=== PATIENT | female | born 1940 | race Caucasian/White ===

== ENCOUNTER 2016-09-15 06:57 | Day surgery (SDC) | payer MEDICARE, BC ==
[2016-09-15] VITALS (18 sets, daily range): BP systolic 108–152; BP diastolic 69–97
[~2016-09-15] VITALS: Ht 162.6 cm; Wt 82.6 kg
[~2016-09-15 06:57] MED LIST: ASPI-241 PO; ATEN50TA PO; CLOP75TA PO; MULT-608 PO; PRAV10TA23 PO
[2016-09-15] MEDS ORDERED: LIDOCAINE 1% INJ 20 ML (XYLOCAINE) VIAL ONE (07:06)
[2016-09-15] MEDS ORDERED: NS IV 1000 ML 1,000 ML ONE (07:06)
[2016-09-15] MEDS ORDERED: HEParin (CATH LAB) 2,000 ML IV ONE (07:06)
[2016-09-15] MEDS ORDERED: NS IV 1000 ML 1,000 ML IV SCH ×2 (07:30→09:51)
[2016-09-15 07:31] LABS: MEAN PLATELET VOLUME 9.7 FL (7.4-10.4); RED BLOOD COUNT 4.44 10^6/uL (4.35-5.85); RED CELL DISTRIBUTION WIDTH 12.8 % (10.0-14.5); WHITE BLOOD COUNT 5.4 10^3/uL (4.3-11.0)
[2016-09-15] MEDS ORDERED: ASPI-983 PO (07:39)
[2016-09-15] MEDS ORDERED: AMLO5TAB4 PO (07:39)
[2016-09-15 07:51] LABS: ALANINE AMINOTRANSFERASE 17 U/L (0-55); ALBUMIN 4.4 G/DL (3.2-4.5); ANION GAP 9 MMOL/L (5-14); ASPARTATE AMINO TRANSFERASE 27 U/L (5-34); BILIRUBIN,TOTAL 0.4 MG/DL (0.1-1.0); BLOOD UREA NITROGEN 23 MG/DL (7-18); BUN/CREATININE RATIO 27; CALCIUM 9.2 MG/DL (8.5-10.1); CARBON DIOXIDE 26 MMOL/L (21-32); CHLORIDE 106 MMOL/L (98-107); CHOLESTEROL 162 MG/DL (< 200); CREATININE SERUM 0.86 MG/DL (0.60-1.30); DIRECT LDL 82 MG/DL (1-129); GFR ESTIMATED > 60; GLUCOSE 90 MG/DL (70-105); POTASSIUM 4.1 MMOL/L (3.6-5.0); SODIUM 141 MMOL/L (135-145); TOTAL PROTEIN 6.8 G/DL (6.4-8.2); TRIGLYCERIDES 58 MG/DL (<150); VLDL CHOLESTEROL 12 MG/DL (5-40)
[2016-09-15] MEDS ORDERED: fentaNYL INJECTION 100 MCG/2 ML AMP ONE (08:26)
[2016-09-15] MEDS ORDERED: MIDAZOLAM 5 MG/5 ML (VERSED) VIAL ONE (08:26)
[2016-09-15] MEDS ORDERED: diphenhydrAMINE 50 MG/ML INJ (BENADRYL) ONE (08:26)
--- NOTE | 2016-09-15 08:32 | Cardiac Procedure Note-CS/ASA ---
Pre-Procedure Note Pre-Op Procedure Note H&P Reviewed The H&P was reviewed, patient examined and no changes noted. Date H&P Reviewed: Sep 15, 2016 Time H&P Reviewed: 08:31 Conscious Sedation Pre-Proced Time Reviewed: :31 ASA Class: 3 Airway Mallampati Classification: ([place] appropriate class) I. II. III, IV Lungs Heart ASA score ASA 1: a normal healthy patient ASA 2: a patient with a mild systemic disease (mid diabetes, controlled hypertension, obesity ASA 3: a patient with a severe systemic disease that limits activity (angina , COPD, prior Myocardial infarction) ASA 4: a patient with an incapacitating disease that is a constant threat to life (CHF, renal failure) ASA 5: a moribund patient not expected to survive 24 hrs. (ruptured aneurysm) ASA 6: a declared brain patient whose organs are being harvested. For emergent operations, add the letter E after the classification Grade 2 Sedation Plan: Analgesia, Amnesia, Plan communicated to team members, Discussed options with patient/fam, Discussed risks with patient/fam Note The patient is an appropriate candidate to undergo the planned procedure, sedation, and anesthesia. The patient immediately re-assessed prior to indication. SOPHY MATTSON MD FACP FACC CCDS Sep 15, 2016 08:32
[2016-09-15] MEDS ORDERED: HEParin 1000 UNIT/ML (10ML VIAL) FOR BOLUS ONE (08:55)
[2016-09-15] MEDS ORDERED: EPTIFIBATIDE BOLUS 20 ML IV ONE (08:55)
[2016-09-15] MEDS ORDERED: NITROGLYCERIN DRIP 25 MG/D5W 0 ML IV ONE (08:56)
[2016-09-15] MEDS ORDERED: CLOPIDOGREL 300 MG (PLAVIX) TABLET PO ONE (09:29)
[2016-09-15] MEDS ORDERED: ASPIRIN 81 MG CHEW (CHILDREN'S ASA) ONE (09:30)
[2016-09-15] MEDS ORDERED: PATIENT MAY USE OWN MEDS, ALL PO SCH (10:00)
[2016-09-15] MEDS ORDERED: ACETAMINOPHEN 325 MG TABLET/CAPLET (TYLENOL) PO PRN (10:00)
--- NOTE | 2016-09-15 12:18 | CARDIAC CATHETERIZATION ---
PROCEDURE PHYSICIAN: SOPHY MATTSON CATHETERIZATION AND CORONARY INTERVENTION REPORT: DATE OF PROCEDURE: 09/15/2016 Konrad Mills is a 76-year-old lady who has known coronary artery disease with a history of coronary stenting in 2010. She has been experiencing chest discomfort. A myocardial perfusion imaging study indicated anterolateral ischemia. Cardiac catheterization was carried out after having obtained informed consent for cardiac catheterization and possible ad hoc coronary intervention. PROCEDURE: She was brought to the cardiac catheterization laboratory in a fasting state. The right groin was prepared and draped in usual sterile fashion. 1% lidocaine was used for local anesthesia. Modified Seldinger technique was used to advance a 5-Tajik sheath in the right femoral artery. 5-Tajik JL4 catheter was used for left coronary angiography. 5-Tajik JR4 catheter for right coronary angiography. A 5-Tajik pigtail catheter was used for left heart catheterization and left ventricular angiography. PERCUTANEOUS INTERVENTION TO THE LEFT ANTERIOR DESCENDING ARTERY: Following completion of the diagnostic procedure, we exchanged the sheath over the wire for a 6-Tajik sheath and used a 6-Tajik JL4 guide catheter to engage the left coronary artery. A double bolus of Integrilin was given. 5,000 units of intravenous heparin were given. BMW wire was used to cross the lesion in the proximal left anterior descending artery and the tip was placed in the distal vessel. We advanced Alpine Xience 2.75 x 23 mm stent which was carefully positioned to cover the long lesion in the proximal left anterior descending artery. The distal edge of the stent is proximal to the proximal edge of a previously placed stent in the mid left anterior descending artery. The stent was deployed at 20 atmospheres. Subsequently, further balloon angioplasty was carried out using the stent balloon up to 22 atmospheres. We also then used a NC Quantum 3.0 x 15 mm balloon. The noncompliant balloon was used to carry out balloon angioplasty across all of the newly stented area. Subsequent angiography revealed 0% residual stenosis at the previous site of up to 70% stenosis. The stents are not overlapping. The mid left anterior descending artery stent is known to be Promus 2.75 x 12 mm, which was placed in 10/2010. Flow throughout the vessel is normal. Angioplasty equipment was removed. Angiography of the right femoral artery was carried out through the sheath. Mynx was used to achieve hemostasis. She tolerated the procedure well. HEMODYNAMICS: Left ventricular end diastolic pressure following coronary angiography was 11 mmHg there is no significant pressure gradient on pullback sitting valve. Ascending aortic pressure was 139/60 with a mean of 95 mmHg. CORONARY ANGIOGRAPHY: The left main coronary artery is free of significant disease. Left anterior descending artery had long proximal lesion of up to approximately 70% to which successful stenting was carried out with Alpine Xience 2.75 x 23 mm stent that was postdilated with NC Quantum 3 mm balloon. A stent in the mid left anterior descending artery placed in October 2010 is patent and without significant disease. These 2 stents do not overlap. The left circumflex right arteries exhibit only mild plaques. LEFT VENTRICULAR ANGIOGRAPHY: Left ventricular angiography was carried out in the right anterior oblique projection. Global left ventricular systolic function is normal. Left ventricular ejection fraction is 65 to 70%. There is moderate mitral regurgitation, which appears to be catheter-induced. CONCLUSIONS: 1. Coronary artery disease, primarily consisting of a long, up to 70% stenosis within the mid left anterior descending artery to which successful stenting was carried out with Alpine Xience 2.75 x 23 mm stent that was postdilated with 3.0 mm noncompliant balloon. A mid right coronary artery stent known to be Promus 2.75 x 12 mm is a widely patent and free of significant disease. The stents are not overlapping. 2. Normal global left ventricular systolic function with an ejection fraction of 65 to 70%. 3. Normal left ventricular end diastolic pressure. 4. Mild mitral regurgitation that appears to be catheter-induced. She is being hospitalized after today's procedure. Plavix has been added to the regimen. Aspirin and the rest of the previous regimen is being continued. Job ID: [id number] Dictated Date: 09/15/2016 09:43:20 [employer] Date: 09/15/2016 11:55:42 / anjel
[2016-09-15] MEDS ORDERED: amLODIPine 5 MG (NORVASC) TAB PO SCH (21:00)
[2016-09-15] MEDS ORDERED: PRAVASTATIN 10 MG PO SCH (21:00)
[2016-09-16 00:22] VITALS: BP 121/90
[2016-09-16 04:24] LABS: RED BLOOD COUNT 4.29 10^6/uL (4.35-5.85); WHITE BLOOD COUNT 6.5 10^3/uL (4.3-11.0)
[2016-09-16 04:44] LABS: ANION GAP 10 MMOL/L (5-14); BLOOD UREA NITROGEN 16 MG/DL (7-18); BUN/CREATININE RATIO 21; CALCIUM 8.5 MG/DL (8.5-10.1); CARBON DIOXIDE 23 MMOL/L (21-32); CHLORIDE 106 MMOL/L (98-107); CREATININE SERUM 0.77 MG/DL (0.60-1.30); GFR ESTIMATED > 60; GLUCOSE 91 MG/DL (70-105); SODIUM 139 MMOL/L (135-145)
[2016-09-16 04:59] VITALS: BP 139/62
[2016-09-16 08:05] VITALS: BP 114/55
--- NOTE | 2016-09-16 08:57 | Progress Note-Cardiology ---
Cardiology SOAP Progress Note Subjective: Denies cp or palp or syncope or leg discomfort Objective: I&O/Vital Signs Vital Sign - Last 12Hours 09/16/16 09/16/16 09/16/16 09/16/16 00:22 01:00 04:59 07:00 Temp 97.4 97.0 Pulse 67 62 66 70 Resp 14 16 B/P 121/90 139/62 Pulse Ox 97 100 O2 Delivery Room Air 09/16/16 08:05 Temp 99.4 Pulse 74 Resp 14 B/P 114/55 Pulse Ox 97 O2 Delivery Room Air Intake and Output 09/16/16 00:00 Intake Total 2617 ml Output Total 350 ml Balance 2267 ml Weight (Pounds): 182 Weight (Ounces): 0.0 Weight (Calculated Kilograms): 82.331361 Groin site without hematoma: Yes Bruising: moderated bruising Constitutional: AAO x 3 well-developed well-nourished Respiratory: No accessory muscle use, lungs clear to percussion lungs clear to auscultation Cardiovascular: regular rate-rhythm S1 and S2 systolic murmur (faint ANTONIETTA at card base) Gastrointestional: No tender, softNo guarding, No rebound, audible bowel sounds Extremities: No pedal edema, No clubbing, No cyanosis Neurologic/Psychiatric: oriented x 3 grossly intact power is 5/5 both on sides Skin: No rash on exposed areas, No ulcerations on exposed areas Results/Procedures: Labs Laboratory Tests 09/16/16 04:00: Anion Gap 10, BUN/Creatinine Ratio 21, Blood Urea Nitrogen 16, Calcium Level 8.5 , Carbon Dioxide Level 23, Chloride Level 106, Creatinine 0.77, Estimat Glomerular Filtration Rate > 60, Glucose Level 91, Hematocrit 38, Hemoglobin 12.8, Mean Corpuscular Hemoglobin 30, Mean Corpuscular Hemoglobin Concent 33, Mean Corpuscular Volume 89, Mean Platelet Volume 10.0, Platelet Count 217, Potassium Level 4.0, Red Blood Count 4.29L, Red Cell Distribution Width 13.0, Sodium Level 139, White Blood Count 6.5 Laboratory Tests 09/15/16 07:20 09/16/16 04:00 A/P: Assessment: MPI of 07/21/16: small amount of basal anterolat ischemia, LVEF 74%, normal RWMA. This led to cath described below Coronary artery disease with a history of drug eluting stenting of the mid left anterior descending artery with Promus 2.75 x 12 mm stent in October 2010. Last card cath of 09/15/15 that showed the previous stent to be patent and patient underwent Alpine Xience 2.7 x 23 mm stenting for 70% prox LAD stenosis (post- dilated with 3 mm noncompliant balloon). Stents are nonoverlapping. LVEF was 65- 70%; LVEDP was normal Echo of 07/06/16: LVEF 60%, triv to mild MR and TR, mild diastolic dysfunction of the LV, no valvular stensosis, PASP WNL CXR on 07/01/16: No acute process Hypertension Chronic intermittent bilateral lower leg edema, likely related to venous insufficiency, currently controlled Minimal carotid arterial disease on ultrasonography of May 2016 Gastroesophageal reflux Intolerance to lovastatin but she has been able to tolerate low dose pravastatin. Lipid profile is currently well controlled History of left hip sciatica which is currently well controlled History of bilat knee replacement Plan: * I spoke with her in detail regarding cath findings and procedures performed * I reviewed risk factor modification and importance of med compliance, including newly added clopidogrel * I answered questions * Outpatient f/u is advised SOPHY MATTSON MD FACP FAC CCDS Sep 16, 2016 08:57
[2016-09-16] MEDS ORDERED: ATENOLOL 50 MG (TENORMIN) TAB PO SCH (09:00)
[2016-09-16] MEDS ORDERED: ASPIRIN E.C. 81 MG (ECOTRIN) TAB PO SCH (09:00)
[2016-09-16] MEDS ORDERED: CLOPIDOGREL 75 MG (PLAVIX) TABLET PO SCH (09:00)
--- NOTE | 2016-09-16 09:02 | Cardiology Discharge Summary ---
Diagnosis/Chief Complaint Date of Admission Date of Discharge Final/Discharge Diagnosis MPI of 07/21/16: small amount of basal anterolat ischemia, LVEF 74%, normal RWMA. This led to cath described below Coronary artery disease with a history of drug eluting stenting of the mid left anterior descending artery with Promus 2.75 x 12 mm stent in October 2010. Last card cath of 09/15/15 that showed the previous stent to be patent and patient underwent Alpine Xience 2.7 x 23 mm stenting for 70% prox LAD stenosis (post- dilated with 3 mm noncompliant balloon). Stents are nonoverlapping. LVEF was 65- 70%; LVEDP was normal Echo of 07/06/16: LVEF 60%, triv to mild MR and TR, mild diastolic dysfunction of the LV, no valvular stensosis, PASP WNL CXR on 07/01/16: No acute process Hypertension Chronic intermittent bilateral lower leg edema, likely related to venous insufficiency, currently controlled Minimal carotid arterial disease on ultrasonography of May 2016 Gastroesophageal reflux Intolerance to lovastatin but she has been able to tolerate low dose pravastatin. Lipid profile is currently well controlled History of left hip sciatica which is currently well controlled History of bilat knee replacement Discharge Summary Procedures Card cath and LAD PCI on 09/15/16 Hospital Course Pending Labs Laboratory Tests 09/16/16 04:00: Anion Gap 10, BUN/Creatinine Ratio 21, Blood Urea Nitrogen 16, Calcium Level 8.5 , Carbon Dioxide Level 23, Chloride Level 106, Creatinine 0.77, Estimat Glomerular Filtration Rate > 60, Glucose Level 91, Hematocrit 38, Hemoglobin 12.8, Mean Corpuscular Hemoglobin 30, Mean Corpuscular Hemoglobin Concent 33, Mean Corpuscular Volume 89, Mean Platelet Volume 10.0, Platelet Count 217, Potassium Level 4.0, Red Blood Count 4.29, Red Cell Distribution Width 13.0, Sodium Level 139, White Blood Count 6.5 Discussion & Recommendations Dicharge Diet: Cardiac Diet Home Medications Reviewed patient Home Medication Reconciliation Form Discharge Home Medications: Reviewed and agree with Discharge Medication list on patient's Discharge Instruction sheet SOPHY MATTSON MD FACP [facility] CCDS Sep 16, 2016 09:02
[2016-09-16] MEDS ORDERED: CLOP75TA28 PO (09:04)
[2016-09-16] MEDS ORDERED: ASPI-999 PO (09:04)
--- NOTE | 2016-09-16 09:05 | Discharge Inst-Cardiology ---
Discharge Inst-Cardiac Discharge Medications New Medications: Aspirin (Aspirin) 81 Mg Tab.chew 81 MG PO DAILY #90 Ref 3 TAB Clopidogrel Bisulfate (Clopidogrel) 75 Mg Tablet 75 MG PO DAILY #90 Ref 3 TAB Continued Medications: Amlodipine Besylate (Norvasc) 5 Mg Tablet 5 MG PO HS TAB Atenolol (Tenormin 50 Mg) 50 Mg Tablet 50 EACH PO DAILY Pravastatin Sodium (Pravachol) 10 Mg Tablet 10 MG PO HS Discontinued Medications: Aspirin (Aspirin EC) 81 Mg Tablet.dr 81 MG PO HS TAB SOPHY MATTSON MD FACP FACC CCDS Sep 16, 2016 09:05
--- NOTE | 2016-09-16 09:05 | Discharge Inst-Post CATH ---
Discharge Inst-CATH Post Cardiac Cath D/C Inst Follow Up/Plan F/u with Dr Stewart in 2 weeks CARDIAC CATH DISCHARGE INSTRUCTIONS *Hold Metformin for 48 hours post heart cath. ACTIVITY * Go Home directly and rest. * Limit activity of the leg (or wrist if it was used) for 7 days including aerobics, swimming, jogging, bicycling, etc. * Restrict stair-climbing for 7 days if possible, if not, climb up with your non -cath leg, then bring together on the same step. * Avoid lifting, pushing, pulling or excessive movement of the affected extremity for 7 days. * Customary sexual activity may be resumed after 2 days-use caution not to use a position that strains or causes pain to the affected extremity. * No driving for 24 hours. * NO SMOKING. * Avoid straining for bowel movements for 7 days. * Gentle walking on level ground is allowed. * Returning to work will depend on the type of procedure and the results. Your doctor will discuss this with you. CALL YOUR DOCTOR FOR ANY OF THE FOLLOWING: *If bleeding from the puncture site occurs- Apply gentle pressure to site with clean cloth and call your doctor or EMS. * If a knot or lump forms under the skin, increases in size, or causes pain. * If bruising appears to be worsening or moving further down your leg instead of disappearing. * Temperature above 101 F. CARE OF YOUR GROIN INCISION; * Bruising or purple discoloration of the skin near the puncture site is common. * You may shower only, no bathtub bathing for 5 days. Be careful to avoid slipping as your leg may feel stiff. * If a closure device was used on your femoral artery, please see the attached guide regarding care of the device and your leg. * REMOVE the dressing from your groin the next day after your procedure in the shower. CARE OF YOUR WRIST INCISION; * Bruising or purple discoloration of the skin near the puncture site is common. * You may shower. * DO NOT submerge wrist. * Remove dressing in 24 hours. SOPHY STEWART MD [facility] CCDS Sep 16, 2016 09:05
[2016-09-16 09:45] VITALS: BP 114/55
== END 2016-09-16 09:45 | disposition home or self-care (01) ==
LOC: CATH 06:57 → ICU 11:10 → CATH 09-16 09:45
PROVIDERS: ATTEND Internal Medicine Cardiovascular Disease
DX: I25.10 Atherosclerotic heart disease of native coronary artery without angina pectoris (principal); I10 Essential (primary) hypertension; R60.9 Edema, unspecified; K21.9 Gastro-esophageal reflux disease without esophagitis; Z79.899 Other long term (current) drug therapy; Z95.5 Presence of coronary angioplasty implant and graft
CPT/HCPCS: 36415; 80048; 80053; 80061; 85027; 85610; 85730; 87081; 93005; 93458

== ENCOUNTER → 2016-10-06 | Outpatient (CLI) | payer MEDICARE, BC ==
[~2016-10-06] MED LIST changes: +AMLO5TAB4 PO; +ASPI-983 PO; +ASPI-999 PO; +CLOP75TA28 PO
--- OUTSIDE RECORDS SUMMARY | 2016-10-06 13:32 | XMS REPORT | Continuity of Care Document ---
Author Author [facility] Organization [facility] Address Unknown Phone Unavailable Care Team Providers Care Television Actor Name Role Phone JOHN PITTMAN DO PCP Insurance Providers Payer Name Policy Number Subscriber Name Relationship [employer] [id number] Coco Emerson L 18 Self / [id number] Coco Emerson 18 Self / Same As Patient Advance Directives Directive Response Recorded Date/Time Advance Directives No 09/15/16 7:19am Health Care Power of Supreme Court Judge No 09/15/16 7:19am Organ Donor No 09/15/16 7:19am Resuscitation Status Full Code 09/15/16 7:19am Problems No problem information available. Medications Current Home Medications Medication Dose Units Route Directions Days/Qty Instructions Start Date Atenolol 50 Mg 50 Each Oral Daily 10/16/10 Pravastatin Sodium 10 Mg 10 Mg Oral Bedtime 10/16/10 Amlodipine Besylate 5 Mg 5 Mg Oral Bedtime 09/15/16 Clopidogrel Bisulfate 75 Mg 75 Mg Oral Daily 90 09/16/16 Aspirin 81 Mg 81 Mg Oral Daily 90 09/16/16 Past Home Medications Medication Directions Ordered Status Aspirin 325 Mg Tablet.dr 325 Mg Oral Bedtime 10/16/10 Discontinued Clopidogrel Bisulfate 75 Mg Tablet, 1 Each Oral Bedtime 10/16/10 Discontinued Multivitamins 1 Tab Tablet, 1 Tab Oral Bedtime 10/16/10 Discontinued Aspirin 81 Mg Tablet., 81 Mg Oral Bedtime 09/15/16 Discontinued Social History Social History Problem Response Recorded Date/Time Recent Foreign Travel No 09/15/2016 7:25am Recent Infectious Disease Exposure No 09/15/2016 7:25am Smoking Status Never a Smoker 09/15/2016 7:20am Query Response Start Date Stop Date Smoking Status Never a Smoker Hospital Discharge Instructions Patient Instructions Physician Instructions Follow Up/Plan F/u with Dr Stewart in 2 weeks CARDIAC CATH DISCHARGE INSTRUCTIONS *Hold Metformin for 48 hours post heart cath. ACTIVITY * Go Home directly and rest. * Limit activity of the leg (or wrist if it was used) for 7 days including aerobics, swimming, jogging, bicycling, etc. * Restrict stair-climbing for 7 days if possible, if not, climb up with your non-cath leg, then bring together on the same step. * Avoid lifting, pushing, pulling or excessive movement of the affected extremity for 7 days. * Customary sexual activity may be resumed after 2 days-use caution not to use a position that strains or causes pain to the affected extremity. * No driving for 24 hours. * NO SMOKING. * Avoid straining for bowel movements for 7 days. * Gentle walking on level ground is allowed. * Returning to work will depend on the type of procedure and the results. Your doctor will discuss this with you. CALL YOUR DOCTOR FOR ANY OF THE FOLLOWING: *If bleeding from the puncture site occurs- Apply gentle pressure to site with clean cloth and call your doctor or EMS. * If a knot or lump forms under the skin, increases in size, or causes pain. * If bruising appears to be worsening or moving further down your leg instead of disappearing. * Temperature above 101 F. CARE OF YOUR GROIN INCISION; * Bruising or purple discoloration of the skin near the puncture site is common. * You may shower only, no bathtub bathing for 5 days. Be careful to avoid slipping as your leg may feel stiff. * If a closure device was used on your femoral artery, please see the attached guide regarding care of the device and your leg. * REMOVE the dressing from your groin the next day after your procedure in the shower. CARE OF YOUR WRIST INCISION; * Bruising or purple discoloration of the skin near the puncture site is common. * You may shower. * DO NOT submerge wrist. * Remove dressing in 24 hours. Plan of Care Discharge Date 09/16/16 9:45am Instructions/Education Provided CARDIAC CATH DISCHARGE INSTRUC Prescriptions See Medication Section Functional Status Query Response Date Recorded Patient Orientation Person Place Time Situation September 16, 2016 10:16am Comprehension Ability Understands Concepts September 16, 2016 8:00am Allergies, Adverse Reactions, Alerts Allergen Type Severity Reaction Status Last Updated hydrocodone ([id number]) Allergy Unknown Active 07/26/08 Penicillin g Allergy Unknown Active 07/26/08 Immunizations No immunization records. Vital Signs Acute Vital Signs Vital Response Date/Time Temperature (Fahrenheit) 99.4 degrees F (97.6 - 99.5) 09/16/2016 9:45am Temperature (Calculated Celsius) 37.47141 degrees C (36.4 - 37.5) 09/16/2016 8:05am Temperature Source Tympanic 09/16/2016 9:45am Pulse Rate (adult) 74 bpm (60 - 90) 09/16/2016 9:45am Respiratory Rate 14 bpm (12 - 24) 09/16/2016 9:45am O2 Sat by Pulse Oximetry 97 % (88 - 100) 09/16/2016 9:45am Blood Pressure 114/55 mm Hg 09/16/2016 9:45am Blood Pressure Mean 74 mm Hg 09/16/2016 8:05am Pain Numeric Pain Scale 0-No Pain 09/16/2016 9:45am Height (Feet) 5 feet 09/15/2016 7:25am Height (Inches) 4.00 inches 09/15/2016 7:25am Height (Calculated Centimeters) 162.475296 cm 09/15/2016 7:25am Weight (Pounds) 182 pounds 09/15/2016 7:25am Weight (Ounces) 0.0 oz 09/15/2016 7:25am Weight (Calculated Grams) 18939.81 gm 09/15/2016 7:25am Weight (Calculated Kilograms) 82.098110 kilograms 09/15/2016 7:25am Calculated BMI 31.2 09/15/2016 7:25am Capillary Refill Capillary Refill Less Than 3 Seconds 09/15/2016 2:00pm Results Laboratory Results Test Name Result Units Flags Reference Collection Date/Time Result Date/ Time Comments White Blood Count 6.5 10^3/uL 4.3-11.0 09/16/2016 4:00am 09/16/2016 4: 26am Red Blood Count 4.29 10^6/uL L 4.35-5.85 09/16/2016 4:00am 09/16/2016 4: 26am Hemoglobin 12.8 G/DL 11.5-16.0 09/16/2016 4:00am 09/16/2016 4:26am Hematocrit 38 % 35-52 09/16/2016 4:00am 09/16/2016 4:26am Mean Corpuscular Volume 89 FL 80-99 09/16/2016 4:00am 09/16/2016 4: 26am Mean Corpuscular Hemoglobin 30 PG 25-34 09/16/2016 4:00am 09/16/2016 4: 26am Mean Corpuscular Hemoglobin Concent 33 G/DL 32-36 09/16/2016 4:00am 08/2016 4:26am Red Cell Distribution Width 13.0 % 10.0-14.5 09/16/2016 4:00am 2016 4:26am Platelet Count 217 10^3/uL 130-400 09/16/2016 4:00am 09/16/2016 4:26am Mean Platelet Volume 10.0 FL 7.4-10.4 09/16/2016 4:00am 09/16/2016 4: 26am Prothrombin Time 13.0 SEC 12.2-14.7 09/15/2016 7:20am 09/15/2016 7: 46am INR Comment 1.0 0.8-1.4 09/15/2016 7:20am 09/15/2016 7:46am INTERPRETIVE DATA SUGGESTED THERAPEUTIC RANGE FOR INR'S: VENOUS THROMBOSIS, PULMONARY EMBOLISM, OR PREVENTION OF SYSTEMIC EMBOLISM (EG. IN ATRIAL FIBRILLATION): 2.0 - 3.0 MECHANICAL PROSTHETIC HEART VALVES: 2.5 - 3.5* *NOTE: INR'S UP TO 4.5 MAY BE NECESSARY IN SELECTED GROUPS OF HIGH RISK PATIENTS. [employer] CONSENSUS CONFERENCE ON ANTITHROMBOTIC THERAPY (2000). Activated Partial Thromboplast Time 29 SEC 24-35 09/15/2016 7:20 7:46am Sodium Level 139 MMOL/L 135-145 09/16/2016 4:00am 09/16/2016 4:52am Potassium Level 4.0 MMOL/L 3.6-5.0 09/16/2016 4:00am 09/16/2016 4:52am Chloride Level 106 MMOL/L 98-107 09/16/2016 4:00am 09/16/2016 4:52am Carbon Dioxide Level 23 MMOL/L 21-32 09/16/2016 4:00am 09/16/2016 4: 52am Anion Gap 10 MMOL/L 5-14 09/16/2016 4:00am 09/16/2016 4:52am Blood Urea Nitrogen 16 MG/DL 7-18 09/16/2016 4:00am 09/16/2016 4:52am Creatinine 0.77 MG/DL 0.60-1.30 09/16/2016 4:00am 09/16/2016 4:52am BUN/Creatinine Ratio 21 09/16/2016 4:00am 09/16/2016 4:52am Estimat Glomerular Filtration Rate > 60 09/16/2016 4:00am 2016 4:52am GFR INTERPRETIVE DATA UNITS FOR ESTIMATED GFR (eGFR): mL/min/1.73 M2 REFERENCE RANGE FOR ESTIMATED GFR (eGFR) eGFR NORMAL eGFR >60 MODERATELY DECREASED eGFR 30-59 SEVERLY DECREASED eGFR 15-29 KIDNEY FAILURE <15 (OR DIALYSIS) Glucose Level 91 MG/DL 70-105 09/16/2016 4:00am 09/16/2016 4:52am Calcium Level 8.5 MG/DL 8.5-10.1 09/16/2016 4:00am 09/16/2016 4:52am Total Bilirubin 0.4 MG/DL 0.1-1.0 09/15/2016 7:20am 09/15/2016 7:52am Alkaline Phosphatase 63 U/L 40-136 09/15/2016 7:20am 09/15/2016 7:52am Aspartate Amino Transf (AST/SGOT) 27 U/L 5-34 09/15/2016 7:20am 2016 7:52am Alanine Aminotransferase (ALT/SGPT) 17 U/L 0-55 09/15/2016 7:20am 09/15 7:52am Total Protein 6.8 G/DL 6.4-8.2 09/15/2016 7:20am 09/15/2016 7:52am Albumin 4.4 G/DL 3.2-4.5 09/15/2016 7:20am 09/15/2016 7:52am Triglycerides Level 58 MG/DL <150 09/15/2016 7:20am 09/15/2016 7:52am Cholesterol Level 162 MG/DL < 200 09/15/2016 7:20am 09/15/2016 7:52am HDL Cholesterol 70 MG/DL H 40-60 09/15/2016 7:20am 09/15/2016 7:52am LDL Cholesterol Direct 82 MG/DL 1-129 09/15/2016 7:20am 09/15/2016 7: 52am VLDL Cholesterol 12 MG/DL 5-40 09/15/2016 7:20am 09/15/2016 7:52am Procedures Procedure Status Date Provider(s) Tracing only of electrocardiogram Completed 09/15/16 [facility] Tracing only of electrocardiogram Completed 09/16/16 SOPHY STEWART MD, FACP FACC CCDS Encounters Encounter Location Arrival/Admit Date Discharge/Depart Date Attending Provider Departed [facility] 09/15/16 6:57am 9:45am SOPHY STEWART FACP, MD [facility]
--- NOTE | 2016-10-06 15:44 | Diagnostic Imaging Report ---
Indication: Three-week status post right groin catheterization Grayscale imaging was performed. Color Doppler velocity and spectral waveform analysis of the right groin vessels was performed. Examination shows patent common femoral artery and veins. There is no pseudoaneurysm. There is no AV fistula. There is no hematoma. Impression: No abnormality is seen. Dictated by: Dictated on workstation # [id number]
== END ==
LOC: RAD 11:12
PROVIDERS: ATTEND Internal Medicine Cardiovascular Disease
DX: I25.10 Atherosclerotic heart disease of native coronary artery without angina pectoris (principal); R10.31 Right lower quadrant pain; I65.23 Occlusion and stenosis of bilateral carotid arteries; E78.4 Other hyperlipidemia; I10 Essential (primary) hypertension
CPT/HCPCS: 93926

== ENCOUNTER → 2016-12-04 | Outpatient (CLI) | payer MEDICARE, BC ==
--- NOTE | 2016-12-07 09:15 | Diagnostic Imaging Report ---
Bilateral screening mammogram The current study was also evaluated with a Computer Aided Detection (CAD) system. Indication: Screening. No current complaints stated on the questionnaire. COMPARISON: 12/03/15. FINDINGS: The breasts are composed of scattered fibroglandular densities. There are scattered benign-appearing calcifications. Allowing for technique and positional differences, no suspicious change is seen. IMPRESSION: No significant change. ACR BI-RADS Category 2: Benign findings. Result letter will be mailed to the patient. Note: At least 10% of breast cancer is not imaged by mammography. Dictated by: Dictated on workstation # [id number]
== END ==
LOC: RAD 12:31
PROVIDERS: ATTEND Family Medicine
DX: Z12.31 Encounter for screening mammogram for malignant neoplasm of breast (principal)
CPT/HCPCS: 77067

== ENCOUNTER → 2018-12-12 | Outpatient (CLI) | payer MEDICARE, BC ==
--- NOTE | 2018-12-12 12:17 | Diagnostic Imaging Report ---
INDICATION: Screening The current study was also evaluated with a Computer Aided Detection (CAD) system. 3-D Tomographic imaging was also performed. FINDINGS: Comparison made with prior examination from 12/06/2017, 12/04/2016 and 12/03/2015. There are scattered fibroglandular densities bilaterally. There are a few benign type calcifications. There is no dominant mass, spiculated lesion or suspicious calcification identified. Skin, nipples and axilla are unremarkable. IMPRESSION: Category 2 benign ACR BI-RADS Category 2: Benign findings. Result letter will be mailed to the patient. Note: At least 10% of breast cancer is not imaged by mammography. Dictated by: Dictated on workstation # [id number]
== END ==
LOC: RAD 10:41
PROVIDERS: ATTEND Family Medicine
DX: Z12.31 Encounter for screening mammogram for malignant neoplasm of breast (principal)
CPT/HCPCS: 77067

== ENCOUNTER 2019-02-07 22:18 | Observation (INO) | payer MEDICARE, BC ==
[~2019-02-07] VITALS: Ht 162.6 cm; Wt 73.2 kg
--- OUTSIDE RECORDS SUMMARY | 2019-02-07 22:24 | XMS REPORT | Continuity of Care Document ---
Author Organization Unknown Address Unknown Allergies Active Description Code Type Severity Reaction Onset Reported/Identified Relationship to Patient Clinical Status Yes hydrocodone [id number] Drug Allergy Unknown N/A 07/26/2008 Yes penicillin G [id number] Drug Allergy Unknown N/A 07/26/2008 Medications There is no data. Problems Date Dx Coded Attending Type Code Diagnosis Diagnosed By 06/27/2014 KARMEN GRAY MD Ot 241.0 08/13/2014 KARMEN GRAY MD Ot 241.0 11/22/2014 SRINIVASAN RENTERIA FACC, ALI FACP CCDS Ot 272.4 11/22/2014 SRINIVASAN SOARESC, ALI FACP CCDS Ot 401.9 11/22/2014 SRINIVASAN SOARESC, ALI FACP CCDS Ot 414.9 11/22/2014 SRINIVASAN RENTERIA FACC, ALI FACP CCDS Ot 447.9 11/22/2014 SRINIVASAN RENTERIA FACC, ALI FACP CCDS Ot 530.81 11/22/2014 SRINIVASAN SOARESC, ALI FACP CCDS Ot V12.49 11/22/2014 SRINIVASAN RENTERIA FACC, ALI FACP CCDS Ot V43.65 12/03/2014 SRINIVASAN RENTERIA FACC, ALI FACP CCDS Ot 272.4 12/03/2014 SRINIVASAN RENTERIA FACC, ALI FACP CCDS Ot 401.9 12/03/2014 SRINIVASAN RENTERIA FACC, ALI FACP CCDS Ot 414.9 12/03/2014 SRINIVASAN RENTERIA FACC, ALI FACP CCDS Ot 447.9 12/03/2014 SRINIVASAN SOARESC, ALI FACP CCDS Ot 530.81 12/03/2014 SRINIVASAN SOARESC, ALI FACP CCDS Ot V12.49 12/03/2014 SRINIVASAN OSARESC, ALI FACP CCDS Ot V43.65 12/03/2014 JOHN GUILLORY DO Ot V76.12 12/03/2014 JOHN GUILLORY DO Ot V76.12 12/03/2014 RAVINDERBERNAVIRGIL LINDSEY CARLOSJOHN S Ot V76.12 12/18/2014 SRINIVASAN RENTERIA FAC, ALI FACP CCDS Ot 272.4 12/18/2014 SRINIVASAN MD [facility], ALI FACP CCDS Ot 401.9 12/18/2014 SRINIVASAN MD [facility], ALI FACP CCDS Ot 414.9 12/18/2014 SRINIVASAN MD FAC, ALI FACP CCDS Ot 447.9 12/18/2014 SRINIVASAN MD [facility], ALI FACP CCDS Ot 530.81 12/18/2014 SRINIVASAN MD [facility], ALI FACP CCDS Ot V12.49 12/18/2014 SRINIVASAN MD [facility], ALI FACP CCDS Ot V43.65 01/04/2015 SRINIVASAN MD [facility], ALI FACP CCDS Ot 272.4 01/04/2015 SRINIVASAN MD [facility], ALI FACP CCDS Ot 401.9 01/04/2015 SRINIVASAN MD [facility], ALI FACP CCDS Ot 414.9 01/04/2015 SRINIVASAN MD [facility], ALI FACP CCDS Ot 447.9 01/04/2015 SRINIVASAN MD [facility], ALI FACP CCDS Ot 530.81 01/04/2015 SRINIVASAN MD [facility], ALI FACP CCDS Ot V12.49 01/04/2015 SRINIVASAN MD [facility], ALI FACP CCDS Ot V43.65 01/12/2015 TOYA JOHN S Ot V76.12 12/04/2015 TOYA JOHN S Ot Z12.31 ENCNTR SCREEN MAMMOGRAM FOR MALIGNANT NE 12/05/2015 JOHN GUILLORY DO S Ot Z12.31 ENCNTR SCREEN MAMMOGRAM FOR MALIGNANT NE 12/24/2015 TOYA JOHN S Ot Z12.31 ENCNTR SCREEN MAMMOGRAM FOR MALIGNANT NE 07/01/2016 Ot 611.72 LUMP OR MASS IN BREAST 07/01/2016 Ot 611.72 LUMP OR MASS IN BREAST 07/01/2016 Ot 922.0 CONTUSION OF BREAST 07/01/2016 Ot E000.8 OTHER EXTERNAL CAUSE STATUS 07/01/2016 Ot E888.9 FALL NOS 07/01/2016 Ot V76.12 OTH SCREEN MAMMO- MALIGN NEOPLASM OF [place] 07/01/2016 KARMEN GRAY MD Ot V76.12 OTH SCREEN MAMMO-MALIGN NEOPLASM OF [place] 07/01/2016 SHAHBAZ VERAS APRN Ot V76.12 OTH SCREEN MAMMO-MALIGN NEOPLASM OF [place] 07/01/2016 KARMEN GRAY MD Ot 241.0 NONTOX UNINODULAR GOITER 07/01/2016 KARMEN GRAY MD Ot 241.0 NONTOX UNINODULAR GOITER 07/01/2016 SRINIVASAN RENTERIA FACC, ALI FACP CCDS Ot 272.4 HYPERLIPIDEMIA NEC/NOS 07/01/2016 SRINIVASAN RENTERIA FACC, ALI FACP CCDS Ot 401.9 HYPERTENSION NOS 07/01/2016 SRINIVASAN RENTERIA FACC, ALI FACP CCDS Ot 414.9 CHR ISCHEMIC HRT DIS NOS 07/01/2016 SRINIVASAN RENTERIA FACC, ALI FACP CCDS Ot 447.9 ARTERIAL DISEASE NOS 07/01/2016 SRINIVASAN RENTERIA FACC, ALI FACP CCDS Ot 530.81 ESOPHAGEAL REFLUX 07/01/2016 SRINIVASAN RENTERIA FACC, ALI FACP CCDS Ot V12.49 HX OTH DISORD/NERV SYS SENSE ORGANS 07/01/2016 SRINIVASAN RENTERIA FACC, ALI FACP CCDS Ot V43.65 KNEE JOINT REPLACEMENT STATUS 07/01/2016 JOHN GUILLORY DO Ot V76.12 OTH SCREEN MAMMO-MALIGN NEOPLASM OF [place] 07/01/2016 JOHN GUILLORY DO Ot Z12.31 ENCNTR SCREEN MAMMOGRAM FOR MALIGNANT NE 07/02/2016 SRINIVASAN RENTERIA FACC, ALI FACP CCDS Ot R07.89 OTHER CHEST PAIN 07/06/2016 Ot 611.72 LUMP OR MASS IN BREAST 07/06/2016 Ot 611.72 LUMP OR MASS IN BREAST 07/06/2016 Ot 922.0 CONTUSION OF BREAST 07/06/2016 Ot E000.8 OTHER EXTERNAL CAUSE STATUS 07/06/2016 Ot E888.9 FALL NOS 07/06/2016 Ot V76.12 OTH SCREEN MAMMO- MALIGN NEOPLASM OF [place] 07/06/2016 KARMEN GRAY MD Ot V76.12 OTH SCREEN MAMMO-MALIGN NEOPLASM OF [place] 07/06/2016 SHAHBAZ VERAS APRN Ot V76.12 OTH SCREEN MAMMO-MALIGN NEOPLASM OF [place] 07/06/2016 KARMEN GRAY MD Ot 241.0 NONTOX UNINODULAR GOITER 07/06/2016 KARMEN GRAY MD Ot 241.0 NONTOX UNINODULAR GOITER 07/06/2016 SRINIVASAN RENTERIA FACC, SOPHY FACP CCDS Ot 272.4 HYPERLIPIDEMIA NEC/NOS 07/06/2016 SRINIVASAN RENTERIA FACC, SOPHY FACP CCDS Ot 401.9 HYPERTENSION NOS 07/06/2016 SRINIVASAN RENTERIA FACC, SOPHY FACP CCDS Ot 414.9 CHR ISCHEMIC HRT DIS NOS 07/06/2016 SRINIVASAN RENTERIA FACC, ALI FACP CCDS Ot 447.9 ARTERIAL DISEASE NOS 07/06/2016 SRINIVASAN RENTERIA FACC, SOPHY FACP CCDS Ot 530.81 ESOPHAGEAL REFLUX 07/06/2016 SRINIVASAN RENTERIA FACC, SOPHY FACP CCDS Ot V12.49 HX OTH DISORD/NERV SYS SENSE ORGANS 07/06/2016 SRINIVASAN RENTERIA FACC, SOPHY FACP CCDS Ot V43.65 KNEE JOINT REPLACEMENT STATUS 07/06/2016 JOHN GUILLORY DO S Ot V76.12 OTH SCREEN MAMMO-MALIGN NEOPLASM OF [place] 07/06/2016 JOHN GUILLORY DO S Ot Z12.31 ENCNTR SCREEN MAMMOGRAM FOR MALIGNANT NE 07/06/2016 SRINIVASAN RENTERIA FACC, SOPHY FACP CCDS Ot R07.89 OTHER CHEST PAIN 07/07/2016 SRINIVASAN RENTERIA FACC, ALI FACP CCDS Ot I10 ESSENTIAL (PRIMARY) HYPERTENSION 07/07/2016 SRINIVASAN RENTERIA FACC, ALI FACP CCDS Ot I25.10 ATHSCL HEART DISEASE OF [place] CORONARY 07/07/2016 SRINIVASAN RENTERIA FACC, SOPHY FACP CCDS Ot I65.23 OCCLUSION AND STENOSIS OF [place] 07/07/2016 SRINIVASAN RENTERIA FACC, SOPHY FACP CCDS Ot R07.89 OTHER CHEST PAIN 07/07/2016 SRINIVASAN RENTERIA FACC, SOPHY FACP CCDS Ot Z96.653 PRESENCE OF ARTIFICIAL KNEE JOINT, BILAT 07/07/2016 SRINIVASAN RENTERIA FACC, ALI FACP CCDS Ot I10 ESSENTIAL (PRIMARY) HYPERTENSION 07/07/2016 SOPHY MATTSON MD, FACC FACP CCDS Ot I25.10 ATHSCL HEART DISEASE OF [place] CORONARY 07/07/2016 SRINIVASAN RENTERIA FACC, SOPHY FACP CCDS Ot I65.23 OCCLUSION AND STENOSIS OF [place] 07/07/2016 SRINIVASAN RENTERIA FACC, ALI FACP CCDS Ot R07.89 OTHER CHEST PAIN 07/07/2016 SRINIVASAN RENTERIA FACC, ALI FACP CCDS Ot Z96.653 PRESENCE OF ARTIFICIAL KNEE JOINT, BILAT 07/21/2016 SRINIVASAN RENTERIA FACC, ALI FACP CCDS Ot R07.89 OTHER CHEST PAIN 07/21/2016 SRINIVASAN RENTERIA FACC, ALI FACP CCDS Ot R07.89 OTHER CHEST PAIN 07/22/2016 SRINIVASAN RENTERIA FACC, ALI FACP CCDS Ot R07.89 OTHER CHEST PAIN 07/22/2016 SRINIVASAN RENTERIA FACC, ALI FACP CCDS Ot I10 ESSENTIAL (PRIMARY) HYPERTENSION 07/22/2016 SRINIVASAN RENTERIA FACC, ALI FACP CCDS Ot I25.10 ATHSCL HEART DISEASE OF [place] CORONARY 07/22/2016 SRINIVASAN RENTERIA FACC, ALI FACP CCDS Ot I65.23 OCCLUSION AND STENOSIS OF [place] 07/22/2016 SRINIVASAN SOARESC, ALI FACP CCDS Ot R07.89 OTHER CHEST PAIN 07/22/2016 SRINIVASAN SOARESC, ALI FACP CCDS Ot Z96.653 PRESENCE OF ARTIFICIAL KNEE JOINT, BILAT 07/29/2016 SRINIVASAN SOARESC, ALI FACP CCDS Ot I10 ESSENTIAL (PRIMARY) HYPERTENSION 07/29/2016 SRINIVASAN RENTERIA FACC, ALI FACP CCDS Ot I25.10 ATHSCL HEART DISEASE OF [place] CORONARY 07/29/2016 SRINIVASAN RENTERIA FACC, ALI FACP CCDS Ot I65.23 OCCLUSION AND STENOSIS OF [place] 07/29/2016 SRINIVASAN SOARESC, ALI FACP CCDS Ot R07.89 OTHER CHEST PAIN 07/29/2016 SRINIVASAN SOARESC, ALI FACP CCDS Ot Z96.653 PRESENCE OF ARTIFICIAL KNEE JOINT, BILAT 07/29/2016 SRINIVASAN RENTERIA FACC, ALI FACP CCDS Ot R07.89 OTHER CHEST PAIN 08/05/2016 SRINIVASAN RENTERIA FACC, ALI FACP CCDS Ot I10 ESSENTIAL (PRIMARY) HYPERTENSION 08/05/2016 SRINIVASAN RENTERIA FACC, ALI FACP CCDS Ot I25.10 ATHSCL HEART DISEASE OF [place] CORONARY 08/05/2016 SRINIVASAN RENTERIA FACC, ALI FACP CCDS Ot I65.23 OCCLUSION AND STENOSIS OF [place] 08/05/2016 SRINIVASAN SOARESC, ALI FACP CCDS Ot R07.89 OTHER CHEST PAIN 08/05/2016 SRINIVASAN RENTERIA FACC, ALI FACP CCDS Ot Z96.653 PRESENCE OF ARTIFICIAL KNEE JOINT, BILAT 08/13/2016 SRINIVASAN SOARESC, ALI FACP CCDS Ot I10 ESSENTIAL (PRIMARY) HYPERTENSION 08/13/2016 SRINIVASAN RENTERIA FACC, ALI FACP CCDS Ot I25.10 ATHSCL HEART DISEASE OF [place] CORONARY 08/13/2016 SRINIVASAN SOARESC, ALI FACP CCDS Ot I65.23 OCCLUSION AND STENOSIS OF [place] 08/13/2016 SRINIVASAN SOARESC, ALI FACP CCDS Ot R07.89 OTHER CHEST PAIN 08/13/2016 SRINIVASAN RENTERIA FACC, ALI FACP CCDS Ot Z96.653 PRESENCE OF ARTIFICIAL KNEE JOINT, BILAT 08/20/2016 SRINIVASAN RENTERIA FACC, ALI FACP CCDS Ot I10 ESSENTIAL (PRIMARY) HYPERTENSION 08/20/2016 RSINIVASAN RENTERIA FACC, ALI FACP CCDS Ot I25.10 ATHSCL HEART DISEASE OF [place] CORONARY 08/20/2016 SRINIVASAN RENTERIA FACC, ALI FACP CCDS Ot I65.23 OCCLUSION AND STENOSIS OF [place] 08/20/2016 SRINIVASAN RENTERIA FACC, ALI FACP CCDS Ot R07.89 OTHER CHEST PAIN 08/20/2016 SRINIVASAN RENTERIA FACC, ALI FACP CCDS Ot Z96.653 PRESENCE OF ARTIFICIAL KNEE JOINT, BILAT 09/16/2016 SRINIVASAN RENTERIA FACC, ALI FACP CCDS Ot I10 ESSENTIAL (PRIMARY) HYPERTENSION 09/16/2016 SRINIVASAN RENTERIA FACC, ALI FACP CCDS Ot I25.10 ATHSCL HEART DISEASE OF [place] CORONARY 09/16/2016 SRINIVASAN RENTERIA FACC, ALI FACP CCDS Ot K21.9 GASTRO-ESOPHAGEAL REFLUX DISEASE WITHOUT 09/16/2016 SRINIVASAN RENTERIA FACC, ALI FACP CCDS Ot R60.9 EDEMA, UNSPECIFIED 09/16/2016 SRINIVASAN RENTERIA FACC, ALI FACP CCDS Ot 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 09/16/2016 SOPHY MATTSON MD, FACC FACP CCDS Ot Z95.5 PRESENCE OF CORONARY ANGIOPLASTY IMPLANT 09/23/2016 SRINIVASAN MD FACC, ALI FACP CCDS Ot I10 ESSENTIAL (PRIMARY) HYPERTENSION 09/23/2016 SRINIVASAN SOARESC, ALI FACP CCDS Ot I25.10 ATHSCL HEART DISEASE OF [place] CORONARY 09/23/2016 SRINIVASAN RENTERIA FACC, ALI FACP CCDS Ot K21.9 GASTRO-ESOPHAGEAL REFLUX DISEASE WITHOUT 09/23/2016 SRINIVASAN SOARESC, ALI FACP CCDS Ot R60.9 EDEMA, UNSPECIFIED 09/23/2016 SRINIVASAN RENTERIA FACC, ALI FACP CCDS Ot Z79.899 OTHER SENIOR LIVING (CURRENT) DRUG THERAPY 09/23/2016 SRINIVASAN RENTERIA FACC, ALI FACP CCDS Ot Z95.5 PRESENCE OF CORONARY ANGIOPLASTY IMPLANT 10/06/2016 SRINIVASAN RENTERIA FACC, ALI FACP CCDS Ot I25.10 ATHSCL HEART DISEASE OF [place] CORONARY 10/07/2016 SRINIVASAN RENTERIA FACC, ALI FACP CCDS Ot E78.4 OTHER HYPERLIPIDEMIA 10/07/2016 SRINIVASAN RENTERIA FACC, ALI FACP CCDS Ot I10 ESSENTIAL (PRIMARY) HYPERTENSION 10/07/2016 SRINIVASAN RENTERIA FACC, ALI FACP CCDS Ot I25.10 ATHSCL HEART DISEASE OF [place] CORONARY 10/07/2016 SRINIVASAN RENTERIA FACC, ALI FACP CCDS Ot I65.23 OCCLUSION AND STENOSIS OF [place] 10/07/2016 SRINIVASAN RENTERIA FACC, ALI FACP CCDS Ot R10.31 RIGHT LOWER QUADRANT PAIN 10/21/2016 SRINIVASAN RENTERIA FACC, ALI FACP CCDS Ot I10 ESSENTIAL (PRIMARY) HYPERTENSION 10/21/2016 SRINIVASAN RENTERIA FACC, ALI FACP CCDS Ot I25.10 ATHSCL HEART DISEASE OF [place] CORONARY 10/21/2016 SRINIVASAN RENTERIA FACC, ALI FACP CCDS Ot K21.9 GASTRO-ESOPHAGEAL REFLUX DISEASE WITHOUT 10/21/2016 SRINIVASAN RENTERIA FACC, ALI FACP CCDS Ot R60.9 EDEMA, UNSPECIFIED 10/21/2016 SRINIVASAN RENTERIA FACC, ALI FACP CCDS Ot Z79.899 OTHER SENIOR LIVING (CURRENT) DRUG THERAPY 10/21/2016 SRINIVASAN RENTERIA FACC, ALI FACP CCDS Ot Z95.5 PRESENCE OF CORONARY ANGIOPLASTY IMPLANT 10/27/2016 SRINIVASAN RENTERIA FACC, ALI FACP CCDS Ot E78.4 OTHER HYPERLIPIDEMIA 10/27/2016 SRINIVASAN RENTERIA FACC, ALI FACP CCDS Ot I10 ESSENTIAL (PRIMARY) HYPERTENSION 10/27/2016 SRINIVASAN RENTERIA FACC, ALI FACP CCDS Ot I25.10 ATHSCL HEART DISEASE OF [place] CORONARY 10/27/2016 SRINIVASAN RENTERIA FACC, ALI FACP CCDS Ot I65.23 OCCLUSION AND STENOSIS OF [place] 10/27/2016 SRINIVASAN RENTERIA FACC, ALI FACP CCDS Ot R10.31 RIGHT LOWER QUADRANT PAIN 11/04/2016 SRINIVASAN RENTERIA FACC, ALI FACP CCDS Ot E78.4 OTHER HYPERLIPIDEMIA 11/04/2016 SRINIVASAN RENTERIA FACC, ALI FACP CCDS Ot I10 ESSENTIAL (PRIMARY) HYPERTENSION 11/04/2016 SRINIVASAN RENTERIA FACC, ALI FACP CCDS Ot I25.10 ATHSCL HEART DISEASE OF [place] CORONARY 11/04/2016 SIRNIVASAN RENTERIA FACC, ALI FACP CCDS Ot I65.23 OCCLUSION AND STENOSIS OF [place] 11/04/2016 SRINIVASAN RENTERIA FACC, ALI FACP CCDS Ot R10.31 RIGHT LOWER QUADRANT PAIN 12/04/2016 KAREN GUILLORY DOLINE S Ot Z12.31 ENCNTR SCREEN MAMMOGRAM FOR MALIGNANT NE 12/08/2016 RAVINDERNDVIRGIL DO, JOHN S Ot Z12.31 ENCNTR SCREEN MAMMOGRAM FOR MALIGNANT NE 12/08/2016 TOYA CARLOS, JOHN S Ot Z12.31 ENCNTR SCREEN MAMMOGRAM FOR MALIGNANT NE 12/28/2016 KAREN GUILLORY DOLINE S Ot Z12.31 ENCNTR SCREEN MAMMOGRAM FOR MALIGNANT NE 12/02/2017 KARMEN GRAY MD Ot V76.12 OTH SCREEN MAMMO-MALIGN NEOPLASM OF [place] 12/02/2017 SHAHBAZ VERAS APRN Ot V76.12 OTH SCREEN MAMMO-MALIGN NEOPLASM OF [place] 12/02/2017 KARMEN GRAY MD Ot 241.0 NONTOX UNINODULAR GOITER 12/02/2017 KARMEN GRAY MD Ot 241.0 NONTOX UNINODULAR GOITER 12/02/2017 SRINIVASAN RENTERIA FACC, ALI FACP CCDS Ot 272.4 HYPERLIPIDEMIA NEC/NOS 12/02/2017 SRINIVASAN RENTERIA FACC, ALI FACP CCDS Ot 401.9 HYPERTENSION NOS 12/02/2017 SRINIVASAN RENTERIA FACC, ALI FACP CCDS Ot 414.9 CHR ISCHEMIC HRT DIS NOS 12/02/2017 SRINIVASAN RENTERIA FACC, SOPHY FACP CCDS Ot 447.9 ARTERIAL DISEASE NOS 12/02/2017 SRINIVASAN RENTERIA FACC, SOPHY FACP CCDS Ot 530.81 ESOPHAGEAL REFLUX 12/02/2017 SRINIVASAN RENTERIA FACC, ALI FACP CCDS Ot V12.49 HX OTH DISORD/NERV SYS SENSE ORGANS 12/02/2017 SRINIVASAN RENTERIA FACC, SOPHY FACP CCDS Ot V43.65 KNEE JOINT REPLACEMENT STATUS 12/02/2017 TOYA CARLOS JOHN S Ot V76.12 OTH SCREEN MAMMO-MALIGN NEOPLASM OF [place] 12/02/2017 KAREN GUILLORY DOLINE S Ot Z12.31 ENCNTR SCREEN MAMMOGRAM FOR MALIGNANT NE 12/02/2017 SRINIVASAN RENTERIA FACC, SOPHY FACP CCDS Ot I10 ESSENTIAL (PRIMARY) HYPERTENSION 12/02/2017 SRINIVASAN RENTERIA FACC, ALI FACP CCDS Ot I25.10 ATHSCL HEART DISEASE OF [place] CORONARY 12/02/2017 SRINIVASAN RENTERIA FACC, SOPHY FACP CCDS Ot I65.23 OCCLUSION AND STENOSIS OF [place] 12/02/2017 SRINIVASAN RENTERIA FACC, ALI FACP CCDS Ot R07.89 OTHER CHEST PAIN 12/02/2017 SRINIVASAN RENTERIA FACC, ALI FACP CCDS Ot Z96.653 PRESENCE OF ARTIFICIAL KNEE JOINT, BILAT 12/02/2017 SRINIVASAN RENTERIA FACC, ALI FACP CCDS Ot I10 ESSENTIAL (PRIMARY) HYPERTENSION 12/02/2017 SRINIVASAN RENTERIA FACC, ALI FACP CCDS Ot I25.10 ATHSCL HEART DISEASE OF [place] CORONARY 12/02/2017 SRINIVASAN RENTERIA FACC, ALI FACP CCDS Ot I65.23 OCCLUSION AND STENOSIS OF [place] 12/02/2017 SRINIVASAN RENTERIA FACC, ALI FACP CCDS Ot R07.89 OTHER CHEST PAIN 12/02/2017 SRINIVASAN RENTERIA FACC, ALI FACP CCDS Ot Z96.653 PRESENCE OF ARTIFICIAL KNEE JOINT, BILAT 12/02/2017 SRINIVASAN RENTERIA FACC, ALI FACP CCDS Ot R07.89 OTHER CHEST PAIN 12/02/2017 SRINIVASAN RENTERIA FACC, ALI FACP CCDS Ot E78.4 OTHER HYPERLIPIDEMIA 12/02/2017 SRINIVASAN RENTERIA FACC, ALI FACP CCDS Ot I10 ESSENTIAL (PRIMARY) HYPERTENSION 12/02/2017 SRINIVASAN RENTERIA FACC, SOPHY FACP CCDS Ot I25.10 ATHSCL HEART DISEASE OF [place] CORONARY 12/02/2017 SRINIVASAN RENTERIA FACC, ALI FACP CCDS Ot I65.23 OCCLUSION AND STENOSIS OF [place] 12/02/2017 SRINIVASAN RENTERIA FACC, ALI FACP CCDS Ot R10.31 RIGHT LOWER QUADRANT PAIN 12/02/2017 ORENDER DO, JOHN S Ot Z12.31 ENCNTR SCREEN MAMMOGRAM FOR MALIGNANT NE 12/02/2017 ORENDER DO, JOHN S Ot Z12.31 ENCNTR SCREEN MAMMOGRAM FOR MALIGNANT NE 12/07/2017 ORENDER DO, JOHN S Ot Z12.31 ENCNTR SCREEN MAMMOGRAM FOR MALIGNANT NE 12/28/2017 ORENDER DO, JOHN S Ot Z12.31 ENCNTR SCREEN MAMMOGRAM FOR MALIGNANT NE 12/12/2018 SHAHBAZ VERAS APRN Ot V76.12 OTH SCREEN MAMMO-MALIGN NEOPLASM OF [place] 12/12/2018 KARMEN GRAY MD Ot 241.0 NONTOX UNINODULAR GOITER 12/12/2018 KARMEN GRAY MD Ot 241.0 NONTOX UNINODULAR GOITER 12/12/2018 SRINIVASAN RENTERIA FACC, SOPHY FACP CCDS Ot 272.4 HYPERLIPIDEMIA NEC/NOS 12/12/2018 SRINIVASAN RENTERIA FACC, ALI FACP CCDS Ot 401.9 HYPERTENSION NOS 12/12/2018 SRINIVASAN RENTERIA FACC, ALI FACP CCDS Ot 414.9 CHR ISCHEMIC HRT DIS NOS 12/12/2018 SRINIVASAN RENTERIA FACC, ALI FACP CCDS Ot 447.9 ARTERIAL DISEASE NOS 12/12/2018 SRINIVASAN RENTERIA FACC, ALI FACP CCDS Ot 530.81 ESOPHAGEAL REFLUX 12/12/2018 SRINIVASAN RENTERIA FACC, SOPHY FACP CCDS Ot V12.49 HX OTH DISORD/NERV SYS SENSE ORGANS 12/12/2018 SRINIVASAN RENTERIA FACC, ALI FACP CCDS Ot V43.65 KNEE JOINT REPLACEMENT STATUS 12/12/2018 RAVINDERNDER DO, JOHN S Ot V76.12 OTH SCREEN MAMMO-MALIGN NEOPLASM OF [place] 12/12/2018 ORENDER DO, JOHN S Ot Z12.31 ENCNTR SCREEN MAMMOGRAM FOR MALIGNANT NE 12/12/2018 SRINIVASAN RENTERIA FACC, ALI FACP CCDS Ot I10 ESSENTIAL (PRIMARY) HYPERTENSION 12/12/2018 SRINIVASAN MD FACC, ALI FACP CCDS Ot I25.10 ATHSCL HEART DISEASE OF [place] CORONARY 12/12/2018 SRINIVASAN MD FACC, ALI FACP CCDS Ot I65.23 OCCLUSION AND STENOSIS OF [place] 12/12/2018 SRINIVASAN MD FACC, ALI FACP CCDS Ot R07.89 OTHER CHEST PAIN 12/12/2018 SRINIVASAN MD FACC, ALI FACP CCDS Ot Z96.653 PRESENCE OF ARTIFICIAL KNEE JOINT, BILAT 12/12/2018 SRINIVASAN MD FACC, ALI FACP CCDS Ot I10 ESSENTIAL (PRIMARY) HYPERTENSION 12/12/2018 SRINIVASAN RENTERIA FACC, ALI FACP CCDS Ot I25.10 ATHSCL HEART DISEASE OF [place] CORONARY 12/12/2018 SRINIVASAN RENTERIA FACC, ALI FACP CCDS Ot I65.23 OCCLUSION AND STENOSIS OF [place] 12/12/2018 SRINIVASAN RENTERIA FACC, ALI FACP CCDS Ot R07.89 OTHER CHEST PAIN 12/12/2018 SRINIVASAN RENTERIA FACC, ALI FACP CCDS Ot Z96.653 PRESENCE OF ARTIFICIAL KNEE JOINT, BILAT 12/12/2018 SRINIVASAN RENTERIA FACC, ALI FACP CCDS Ot R07.89 OTHER CHEST PAIN 12/12/2018 SRINIVASAN RENTERIA FACC, ALI FACP CCDS Ot E78.4 OTHER HYPERLIPIDEMIA 12/12/2018 SRINIVASAN RENTERIA FACC, ALI FACP CCDS Ot I10 ESSENTIAL (PRIMARY) HYPERTENSION 12/12/2018 SRINIVASAN RENTERIA FAC, ALI FACP CCDS Ot I25.10 ATHSCL HEART DISEASE OF [place] CORONARY 12/12/2018 SRINIVASAN RENTERIA FACC, ALI FACP CCDS Ot I65.23 OCCLUSION AND STENOSIS OF [place] 12/12/2018 SRINIVASAN RENTERIA FACC, ALI FACP CCDS Ot R10.31 RIGHT LOWER QUADRANT PAIN 12/12/2018 KAREN GUILLORY DOLINE S Ot Z12.31 ENCNTR SCREEN MAMMOGRAM FOR MALIGNANT NE 12/12/2018 LINDSEY GUILLORY DOQUELINE S Ot Z12.31 ENCNTR SCREEN MAMMOGRAM FOR MALIGNANT NE 12/12/2018 RAVINDERNDLINDSEY HERMAN DOQUELINE S Ot Z12.31 ENCNTR SCREEN MAMMOGRAM FOR MALIGNANT NE 12/13/2018 JOHN GUILLORY DO Ot Z12.31 ENCNTR SCREEN MAMMOGRAM FOR MALIGNANT NE 01/03/2019 JOHN GUILLORY DO Ot Z12.31 ENCNTR SCREEN MAMMOGRAM FOR MALIGNANT NE Procedures There is no data. Results Test Result Range Automated blood complete blood count (hemogram) panel - 09/15/16 07:20 Blood leukocytes automated count (number/volume) 5.4 10*3/uL 4.3-11.0 Blood erythrocytes automated count (number/volume) 4.44 10*6/uL 4.35-5.85 Venous blood hemoglobin measurement (mass/volume) 13.2 g/dL 11.5-16.0 Blood hematocrit (volume fraction) 39 % 35-52 Automated erythrocyte mean corpuscular volume 89 [foz_us] 80-99 Automated erythrocyte mean corpuscular hemoglobin (mass per erythrocyte) 30 pg 25-34 Automated erythrocyte mean corpuscular hemoglobin concentration measurement (mass/volume) 34 g/dL 32-36 Automated erythrocyte distribution width ratio 12.8 % 10.0- 14.5 Automated blood platelet count (count/volume) 214 10*3/uL 130-400 Automated blood platelet mean volume measurement 9.7 [foz_us] 7.4-10.4 PT panel in platelet poor plasma by coagulation assay - 09/15/16 07:20 Prothrombin time (PT) in platelet poor plasma by coagulation assay 13.0 s 12.2-14.7 INR in platelet poor plasma or blood by coagulation assay 1.0 0.8-1.4 Activated partial thromboplastin time (aPTT) in platelet poor plasma bycoagulation assay - 09/15/16 07:20 Activated partial thromboplastin time (aPTT) in platelet poor plasma bycoagulation assay 29 s 24-35 Comprehensive metabolic panel - 09/15/16 07:20 Serum or plasma sodium measurement (moles/volume) 141 mmol/L 135-145 Serum or plasma potassium measurement (moles/volume) 4.1 mmol/L 3.6-5.0 Serum or plasma chloride measurement (moles/volume) 106 mmol/L 98-107 Carbon dioxide 26 mmol/L 21-32 Serum or plasma anion gap determination (moles/volume) 9 mmol/L 5-14 Serum or plasma urea nitrogen measurement (mass/volume) 23 mg/dL 7-18 Serum or plasma creatinine measurement (mass/volume) 0.86 mg/dL 0.60-1.30 Serum or plasma urea nitrogen/creatinine mass ratio 27 NRG Serum or plasma creatinine measurement with calculation of estimated glomerular filtration rate > NRG Serum or plasma glucose measurement (mass/volume) 90 mg/dL 70-105 Serum or plasma calcium measurement (mass/volume) 9.2 mg/dL 8.5-10.1 Serum or plasma total bilirubin measurement (mass/volume) 0.4 mg/dL 0.1-1.0 Serum or plasma alkaline phosphatase measurement (enzymatic activity/volume) 63 U/L 40-136 Serum or plasma aspartate aminotransferase measurement (enzymatic activity/volume) 27 U/L 5-34 Serum or plasma alanine aminotransferase measurement (enzymatic activity/volume) 17 U/L 0-55 Serum or plasma protein measurement (mass/volume) 6.8 g/dL 6.4-8.2 Serum or plasma albumin measurement (mass/volume) 4.4 g/dL 3.2-4.5 Lipid 1996 panel - 09/15/16 07:20 Serum or plasma triglyceride measurement (mass/volume) 58 mg/dL <150 Serum or plasma cholesterol measurement (mass/volume) 162 mg/dL < 200 Serum or plasma cholesterol in HDL measurement (mass/volume) 70 mg/dL 40-60 Cholesterol in LDL [mass/volume] in serum or plasma by direct assay 82 mg/dL 1-129 Serum or plasma cholesterol in VLDL measurement (mass/volume) 12 mg/dL 5-40 Methicillin resistant Staphylococcus aureus (MRSA) screening culture - 09/15/16 07:20 Methicillin resistant Staphylococcus aureus (MRSA) screening culture NEG NR Automated blood complete blood count (hemogram) panel - 09/16/16 04:00 Blood leukocytes automated count (number/volume) 6.5 10*3/uL 4.3-11.0 Blood erythrocytes automated count (number/volume) 4.29 10*6/uL 4.35-5.85 Venous blood hemoglobin measurement (mass/volume) 12.8 g/dL 11.5-16.0 Blood hematocrit (volume fraction) 38 % 35-52 Automated erythrocyte mean corpuscular volume 89 [foz_us] 80-99 Automated erythrocyte mean corpuscular hemoglobin (mass per erythrocyte) 30 pg 25-34 Automated erythrocyte mean corpuscular hemoglobin concentration measurement (mass/volume) 33 g/dL 32-36 Automated erythrocyte distribution width ratio 13.0 % 10.0- 14.5 Automated blood platelet count (count/volume) 217 10*3/uL 130-400 Automated blood platelet mean volume measurement 10.0 [foz_us] 7.4-10.4 Whole blood basic metabolic panel - 09/16/16 04:00 Serum or plasma sodium measurement (moles/volume) 139 mmol/L 135-145 Serum or plasma potassium measurement (moles/volume) 4.0 mmol/L 3.6-5.0 Serum or plasma chloride measurement (moles/volume) 106 mmol/L 98-107 Carbon dioxide 23 mmol/L 21-32 Serum or plasma anion gap determination (moles/volume) 10 mmol/L 5-14 Serum or plasma urea nitrogen measurement (mass/volume) 16 mg/dL 7-18 Serum or plasma creatinine measurement (mass/volume) 0.77 mg/dL 0.60-1.30 Serum or plasma urea nitrogen/creatinine mass ratio 21 NRG Serum or plasma creatinine measurement with calculation of estimated glomerular filtration rate > NRG Serum or plasma glucose measurement (mass/volume) 91 mg/dL 70-105 Serum or plasma calcium measurement (mass/volume) 8.5 mg/dL 8.5-10.1 Encounters ACCT No. Visit Date/Time Discharge Status Pt. Type Provider Facility Loc./Unit Complaint 04/201711/17/2018 23:25:10 11/17/2018 23:59:59 CLS Outpatient John Guillory. [id number] 12/12/2018 10:41:00 12/12/2018 23:59:59 CLS Outpatient JOHN GUILLORY DO S [facility] SCREENING [id number] 12/06/2017 10:48:00 12/06/2017 23:59:59 CLS Outpatient JOHN GUILLORY DO S [facility] SCREENING [id number] 12/04/2016 12:31:00 12/04/2016 23:59:59 CLS Outpatient KAREN GUILLORY DOLINE S [facility] SCREENING [id number] 10/06/2016 11:12:00 10/06/2016 23:59:59 CLS Outpatient SRINIVASAN RENTERIA FACC, ALI FACP CCDS [facility] RAD CAD,HLP,HTN [id number] 09/15/2016 06:57:00 09/16/2016 09:45:00 DIS Outpatient SRINIVASAN RENTERIA FACC, ALI FACP CCDS [facility] CATH ABNORMAL STRESS TEST,CAD,HTN,HL [id number] 07/21/2016 07:10:00 07/21/2016 23:59:59 CLS Outpatient SRINIVASAN RENTERIA FACC, ALI FACP CCDS [facility] CARD CAD,CHEST DISCOMFORT [id number] 07/06/2016 10:47:00 07/06/2016 23:59:59 CLS Outpatient SRINIVASAN RENTERIA FACC, ALI FACP CCDS [facility] CARD CAD,CHEST DISCOMFORT [id number] 07/01/2016 15:18:00 07/01/2016 23:59:59 CLS Outpatient SRINIVASAN RENTERIA FACC, ALI FACP CCDS [facility] RAD CHEST DISCOMFORT [id number] 12/03/2015 11:57:00 12/03/2015 23:59:59 CLS Outpatient KAREN GUILLORY DOLINE S [facility] RAD SCREENING [id number] 11/30/2014 13:43:00 11/30/2014 23:59:59 CLS Outpatient KAREN GUILLORY DOLINE S [facility] RAD SCREENING [id number] 11/20/2014 07:33:00 11/20/2014 23:59:59 CLS Outpatient SRINIVASAN RENTERIA FACC, ALI FACP CCDS [facility] CARD CAD,HLP,HTN, [id number] 06/19/2014 11:03:00 06/19/2014 23:59:59 CLS Outpatient KARMEN GRAY MD [facility] RAD THYROID NODULE [id number] 12/19/2013 10:43:00 12/19/2013 23:59:59 CLS Outpatient KARMEN GRAY MD [facility] RAD THYROID NODULE [id number] 11/29/2013 10:26:00 11/29/2013 23:59:59 CLS Outpatient SHAHBAZ VERAS APRN [facility] RAD SCREENING [id number] 12/12/2012 11:26:00 12/12/2012 23:59:59 [facility] Outpatient KARMEN GRAY MD [facility] RAD SCREENING [id number] 12/07/2011 09:57:00 Document Registration [id number] 04/07/2011 09:56:00 Document Registration [id number] 03/03/2011 09:33:00 Document Registration
[2019-02-07 22:45] LABS: BASOPHILS % (AUTO) 1 % (0-10); EOSINOPHILS # (AUTO) 0.1 10^3/uL (0.0-0.3); EOSINOPHILS % (AUTO) 1 % (0-10); HEMATOCRIT 38 % (35-52); HEMOGLOBIN 12.6 G/DL (11.5-16.0); LYMPHOCYTES # (AUTO) 2.2 X 10^3 (1.0-4.0); LYMPHOCYTES % (AUTO) 41 % (12-44); MEAN CORPUSCULAR HEMOGLOBIN 30 PG (25-34); MEAN CORPUSCULAR HGB CONC 33 G/DL (32-36); MEAN CORPUSCULAR VOLUME 89 FL (80-99); MEAN PLATELET VOLUME 9.3 FL (7.4-10.4); MONOCYTES # (AUTO) 0.5 X 10^3 (0.0-1.0); MONOCYTES % (AUTO) 9 % (0-12); NEUTROPHILS # (AUTO) 2.6 X 10^3 (1.8-7.8); NEUTROPHILS % (AUTO) 49 % (42-75); PLATELET COUNT 213 10^3/uL (130-400); RED CELL DISTRIBUTION WIDTH 13.5 % (10.0-14.5); WHITE BLOOD COUNT 5.3 10^3/uL (4.3-11.0)
[2019-02-07 23:03] LABS: ALANINE AMINOTRANSFERASE 21 U/L (0-55); ALBUMIN 4.2 GM/DL (3.2-4.5); ALKALINE PHOSPHATASE 61 U/L (40-136); BILIRUBIN,TOTAL 0.3 MG/DL (0.1-1.0); BUN/CREATININE RATIO 24; CALCIUM 9.2 MG/DL (8.5-10.1); CARBON DIOXIDE 25 MMOL/L (21-32); CHLORIDE 101 MMOL/L (98-107); CREATININE SERUM 0.88 MG/DL (0.60-1.30); GFR ESTIMATED > 60; GLUCOSE 115 MG/DL (70-105); MAGNESIUM 2.4 MG/DL (1.8-2.4); SODIUM 136 MMOL/L (135-145); TOTAL PROTEIN 6.8 GM/DL (6.4-8.2)
--- NOTE | 2019-02-07 23:29 | ED Syncope ---
General Chief Complaint: General Problems/Pain Stated Complaint: PASSED OUT Source of Information: Patient, Family, Old Records Exam Limitations: No Limitations History of Present Illness Date Seen by Provider: Feb 07, 2019 Time Seen by Provider: 22:25 Initial Comments This 78-year-old woman presents to the emergency room after having a syncopal episode. She was standing outside visiting with family after having supper. She been standing for approximately 30 minutes when she suddenly felt weak and dizzy. She lost consciousness and collapsed. Her son caught her and she was not injured. Syncope was rather brief. She is alert and oriented upon arrival. She has slight dizziness, weakness, and fatigue but otherwise feels well. She admits that she does not drink water as well as she should. She is also on a points system diet with restricted carbohydrates. She has lost about 23 pounds over the past year intentionally. She notes that her blood pressure has been lower recently including her recent visit to Dr. Stewart's office. She has a history of coronary artery disease with stenting. She also has hypertension and takes atenolol. She denies any chest pain or shortness of breath. Allergies and Home Medications Allergies Coded Allergies: hydrocodone (Verified Allergy, Unknown, 07/26/08) penicillin G (Verified Allergy, Unknown, 07/26/08) Home Medications Amlodipine Besylate 5 Mg Tablet, 5 MG PO HS, (Reported) Aspirin 81 Mg Tab.chew, 81 MG PO DAILY Prescribed by: SOPHY STEWART on 09/16/16903 Atenolol 50 Mg Tablet, 50 EACH PO DAILY, (Reported) Clopidogrel Bisulfate 75 Mg Tablet, 75 MG PO DAILY Prescribed by: SOPHY STEWART on 09/16/16903 Pravastatin Sodium 10 Mg Tablet, 10 MG PO HS, (Reported) Patient Home Medication List Home Medication List Reviewed: Yes Review of Systems Constitutional: see HPI, weakness EENTM: no symptoms reported Respiratory: no symptoms reported Cardiovascular: see HPI Gastrointestinal: no symptoms reported Genitourinary: no symptoms reported : No Musculoskeletal: no symptoms reported Skin: no symptoms reported Psychiatric/Neurological: No Symptoms Reported Past Ewftxod-Kwagya-Yuudnv Hx Past Med/Social Hx: Reviewed and Corrections made Patient Social History Recent Foreign Travel: No Contact w/Someone Who Travel: No Immunizations Up To Date Date of Pneumonia Vaccine: Jun 15, 2016 Date of Influenza Vaccine: Jun 15, 2016 Past Medical History Surgeries: Yes Coronary Stent Respiratory: No Cardiac: Yes Coronary Artery Disease, Hypertension Neurological: No : No Reproductive Disorders: No Genitourinary: No Gastrointestinal: No Musculoskeletal: No Endocrine: No HEENT: No Cancer: No Physical Exam Vital Signs Vital Signs - First Documented 02/07/19 22:25 Temp 96.3 Pulse 65 Resp 18 B/P (MAP) 163/90 (114) O2 Delivery Room Air Capillary Refill : Height, Weight, BMI Height: 5'4.00" Weight: 182lbs. 0.0oz. 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 Norm as Tested Cranial Nerves: Normal Speech, PERRL Motor/Sensory: No Motor Deficit, No Sensory Deficit Skin: Normal Color, Warm/Dry Progress/Results/Core Measures Results/Orders Lab Results Laboratory Tests Test 02/07/19 22:38 02/07/19 23:28 Range/Units White Blood Count 5.3 4.3-11.0 10^3/uL Red Blood Count 4.27 L 4.35-5.85 10^6/uL Hemoglobin 12.6 11.5-16.0 G/DL Hematocrit 38 35-52 % Mean Corpuscular Volume 89 80-99 FL Mean Corpuscular Hemoglobin 30 25-34 PG Mean Corpuscular Hemoglobin Concent 33 32-36 G/DL Red Cell Distribution Width 13.5 10.0-14.5 % Platelet Count 213 130-400 10^3/uL Mean Platelet Volume 9.3 7.4-10.4 FL Neutrophils (%) (Auto) 49 42-75 % Lymphocytes (%) (Auto) 41 12-44 % Monocytes (%) (Auto) 9 0-12 % Eosinophils (%) (Auto) 1 0-10 % Basophils (%) (Auto) 1 0-10 % Neutrophils # (Auto) 2.6 1.8-7.8 X 10^3 Lymphocytes # (Auto) 2.2 1.0-4.0 X 10^3 Monocytes # (Auto) 0.5 0.0-1.0 X 10^3 Eosinophils # (Auto) 0.1 0.0-0.3 10^3/uL Basophils # (Auto) 0.0 0.0-0.1 10^3/uL Sodium Level 136 135-145 MMOL/L Potassium Level 4.0 3.6-5.0 MMOL/L Chloride Level 101 98-107 MMOL/L Carbon Dioxide Level 25 21-32 MMOL/L Anion Gap 10 5-14 MMOL/L Blood Urea Nitrogen 21 H 7-18 MG/DL Creatinine 0.88 0.60-1.30 MG/DL Estimat Glomerular Filtration Rate > 60 BUN/Creatinine Ratio 24 Glucose Level 115 H 70-105 MG/DL Calcium Level 9.2 8.5-10.1 MG/DL Corrected Calcium 9.0 8.5-10.1 MG/DL Magnesium Level 2.4 1.8-2.4 MG/DL Total Bilirubin 0.3 0.1-1.0 MG/DL Aspartate Amino Transf (AST/SGOT) 33 5-34 U/L Alanine Aminotransferase (ALT/SGPT) 21 0-55 U/L Alkaline Phosphatase 61 40-136 U/L Troponin I 0.031 H <0.028 NG/ML Total Protein 6.8 6.4-8.2 GM/DL Albumin 4.2 3.2-4.5 GM/DL Urine Color YELLOW Urine Clarity CLEAR Urine pH 7 5-9 Urine Specific Stephenson 1.015 L 1.016-1.022 Urine Protein 1+ H NEGATIVE Urine Glucose (UA) NEGATIVE NEGATIVE Urine Ketones NEGATIVE NEGATIVE Urine Nitrite NEGATIVE NEGATIVE Urine Bilirubin NEGATIVE NEGATIVE Urine Urobilinogen NORMAL NORMAL MG/DL Urine Leukocyte Esterase 3+ H NEGATIVE Urine RBC (Auto) NEGATIVE NEGATIVE Urine RBC NONE /HPF Urine WBC 2-5 /HPF Urine Squamous Epithelial Cells 2-5 /HPF Urine Crystals NONE /LPF Urine Bacteria FEW H /HPF Urine Casts NONE /LPF Urine Mucus SMALL H /LPF Urine Culture Indicated NO My Orders Orders - TASHI HASTINGS MD Cbc With Automated Diff (02/07/19 22:22) Comprehensive Metabolic Panel (02/07/19 22:22) Magnesium (02/07/19 22:22) Ua Culture If Indicated (02/07/19 22:22) Ed Iv/Invasive Line Start (02/07/19 22:22) Ekg Tracing (02/07/19 22:22) Monitor-Rhythm Ecg Trace Only (02/07/19 22:22) Troponin I (02/07/19 22:26) Orthostatic Vital Signs (Adult (02/07/19 23:33) Ns Iv 500 Ml (Sodium Chloride 0.9%) (02/07/19 23:55) Medications Given in ED Current Medications Medications Dose Ordered Sig/Leti Route Start Time Stop Time Status Last Admin Dose Admin Sodium Chloride 500 ml @ 0 mls/hr Q0M ONCE IV 02/07/19 23:55 02/07/19 23:56 DC 02/08/19 00:05 999 MLS/HR Vital Signs/I&O 02/07/19 02/07/19 22:25 23:41 Temp 96.3 Pulse 65 57 57 61 Resp 18 B/P (MAP) 163/90 (114) 147/72 (97) 151/78 (102) 154/86 (108) O2 Delivery Room Air Progress Progress Note : Progress Note Patient was seen and examined. Orthostatic blood pressures were supine 147/72, heart rate 57; sitting 151/78, heart rate 57; standing 154/86, heart rate 61. She did have some of mild dizziness upon standing. EKG was unremarkable. Case was discussed with Dr. Stewart. Since the syncope could not be explained by orthostatic changes, he recommended admission for observation. Patient is agreeable to this. She did receive 500 mL normal saline in the ER. Initial ECG Impression Date: Feb 08, 2019 Initial ECG Impression Time: 22:32 Initial ECG Rate: 61 Initial ECG Rhythm: Normal Sinus Initial ECG Intervals: Normal Initial ECG Impression: Normal Comment Normal sinus rhythm with no ST elevation or depression. No abnormal intervals or axis deviation. Departure Communication (Admissions) Time/Spoke to Admitting Phy: 23:30 Dr. Stewart Impression Primary Impression: Syncope Qualified Codes: R55 - Syncope and collapse Disposition: ADMITTED INPATIENT Condition: Improved Admissions Decision to Admit Reason: Admit from ER (General) Decision to Admit/Date: Feb 08, 2019 Time/Decision to Admit Time: 23:30 Departure-Patient Inst. Referrals: JOHN PITTMAN DO (PCP/Family) Primary Care Physician TASHI HASTINGS MD Feb 07, 2019 23:29
[2019-02-07 23:33] LABS: BILIRUBIN,URINE NEGATIVE (NEGATIVE); CLARITY,URINE CLEAR; COLOR,URINE YELLOW; GLUCOSE, URINE (UA) NEGATIVE (NEGATIVE); KETONES,URINE NEGATIVE (NEGATIVE); LEUKOCYTE ESTERASE ,URINE 3+ (NEGATIVE); NITRITE,URINE NEGATIVE (NEGATIVE); PH,URINE 7 (5-9); PROTEIN,URINE 1+ (NEGATIVE); UROBILINOGEN,URINE NORMAL (NORMAL)
[2019-02-07 23:41] VITALS: BP_SYST 147; BP_SYST 151; BP_SYST 154; BP_DIAS 72; BP_DIAS 78; BP_DIAS 86
[2019-02-07 23:41] LABS: BACTERIA,URINE FEW /HPF
[2019-02-07] MEDS ORDERED: NS IV 500 ML 500 ML IV ONE (23:55)
--- OUTSIDE RECORDS SUMMARY | 2019-02-08 00:11 | XMS REPORT | Continuity of Care Document ---
Author Organization Unknown Address Unknown Allergies Active Description Code Type Severity Reaction Onset Reported/Identified Relationship to Patient Clinical Status Yes hydrocodone [id number] Drug Allergy Unknown N/A 07/26/2008 Yes penicillin G [id number] Drug Allergy Unknown N/A 07/26/2008 Medications There [...] ALI FACP CCDS Ot V12.49 12/03/2014 SRINIVASAN SOARESC, ALI FACP CCDS Ot V43.65 12/03/2014 JOHN GUILLORY DO Ot V76.12 12/03/2014 JOHN GUILLORY DO Ot V76.12 12/03/2014 RAVINDERBERNAVIRGIL LINDSEY CARLOSJOHN S Ot V76.12 12/18/2014 SRINIVASAN RENTERIA FAC, ALI FACP CCDS Ot 272.4 12/18/2014 SRINIAVSAN MD [facility], ALI FACP CCDS Ot 401.9 12/18/2014 SRINIVASAN MD [facility], ALI FACP CCDS Ot 414.9 12/18/2014 SRINIVASAN MD FAC, ALI FACP CCDS Ot 447.9 12/18/2014 SRINIVASAN MD [facility], ALI FACP CCDS Ot 530.81 12/18/2014 SRINIVASAN MD [facility], ALI FACP CCDS Ot V12.49 12/18/2014 SRINIVASAN MD [facility], ALI FACP CCDS Ot V43.65 01/04/2015 SRINIVASAN MD [facility], ALI FACP CCDS Ot 272.4 01/04/2015 SRINIVASAN MD [facility], ALI FACP CCDS Ot 401.9 01/04/2015 SRINIVASAN MD [facility], ALI FACP CCDS Ot 414.9 01/04/2015 SRINIVASAN MD [facility], ALI FACP CCDS Ot 447.9 01/04/2015 SRINIVASAN MD [facility], ALI FACP CCDS Ot 530.81 01/04/2015 SRINIVASAN MD [facility], ALI FACP CCDS Ot V12.49 01/04/2015 SRINIVASAN MD [facility], ALI FACP CCDS Ot V43.65 01/12/2015 TOYA [...] CCDS Ot I25.10 ATHSCL HEART DISEASE OF [place] CORONARY 07/07/2016 SRINIVASAN RENTERIA FACC, SOPHY FACP [...] CCDS Ot I25.10 ATHSCL HEART DISEASE OF [place] CORONARY 07/07/2016 SRINIVASAN RENTERIA FACC, SOPHY FACP CCDS Ot I65.23 OCCLUSION AND STENOSIS OF BILATERAL [place] 07/07/2016 SRINIVASAN RENTERIA FACC, ALI FACP CCDS Ot R07.89 OTHER CHEST PAIN 07/07/2016 SRINVIASAN RENTERIA FACC, ALI FACP CCDS Ot Z96.653 [...] CCDS Ot I25.10 ATHSCL HEART DISEASE OF [place] CORONARY 07/22/2016 SRINIVASAN RENTERIA FACC, ALI FACP [...] CCDS Ot I25.10 ATHSCL HEART DISEASE OF [place] CORONARY 07/29/2016 SRINIVASAN RENTERIA FACC, ALI FACP CCDS Ot I65.23 OCCLUSION AND STENOSIS OF BILATERAL [place] 07/29/2016 SRINIVASAN SOARESC, ALI FACP CCDS Ot R07.89 OTHER CHEST PAIN 07/29/2016 RSINIVASAN SOARESC, ALI FACP CCDS Ot Z96.653 PRESENCE OF ARTIFICIAL KNEE JOINT, BILAT 07/29/2016 SRINIVASAN RENTERIA FACC, ALI FACP CCDS Ot R07.89 OTHER CHEST PAIN 08/05/2016 SRINIVASAN RENTERIA FACC, ALI FACP CCDS Ot I10 ESSENTIAL (PRIMARY) HYPERTENSION 08/05/2016 SRINIVASAN RENTERIA FACC, ALI FACP CCDS Ot I25.10 ATHSCL HEART DISEASE OF [place] CORONARY 08/05/2016 SRINIVASAN RENTERIA FACC, ALI FACP [...] CCDS Ot I25.10 ATHSCL HEART DISEASE OF [place] CORONARY 08/13/2016 SRINIVASAN SOARESC, ALI FACP CCDS Ot I65.23 OCCLUSION AND STENOSIS OF BILATERAL [place] 08/13/2016 SRINIVASAN SOARESC, ALI FACP CCDS Ot R07.89 OTHER CHEST PAIN 08/13/2016 SRINIVASAN RENTERIA FACC, ALI FACP CCDS Ot Z96.653 PRESENCE OF ARTIFICIAL KNEE JOINT, BILAT 08/20/2016 SRINIVASAN RENTERIA FACC, ALI FACP CCDS Ot I10 ESSENTIAL (PRIMARY) HYPERTENSION 08/20/2016 SRINIVASAN RENTERIA FACC, ALI FACP CCDS Ot I25.10 ATHSCL HEART DISEASE OF [place] CORONARY 08/20/2016 SRINIVASAN RENTERIA FACC, ALI FACP [...] CCDS Ot I25.10 ATHSCL HEART DISEASE OF [place] CORONARY 09/16/2016 SRINIVASAN RENTERIA FACC, ALI FACP CCDS Ot K21.9 GASTRO-ESOPHAGEAL REFLUX DISEASE WITHOUT 09/16/2016 SRINIVASAN RENTERIA FACC, ALI FACP CCDS Ot R60.9 EDEMA, UNSPECIFIED 09/16/2016 SRINIVASAN RENTERIA FACC, ALI FACP CCDS Ot Z79.899 OTHER HEEL BUILDER MACHINE (CURRENT) DRUG THERAPY 09/16/2016 SOPHY MATTSON MD, FACC FACP CCDS Ot Z95.5 PRESENCE OF CORONARY ANGIOPLASTY IMPLANT 09/23/2016 SRINIVASAN MD FACC, ALI FACP CCDS Ot I10 ESSENTIAL (PRIMARY) HYPERTENSION 09/23/2016 SRINIVASAN SOARESC, ALI FACP CCDS Ot I25.10 ATHSCL HEART DISEASE OF [place] CORONARY 09/23/2016 SRINIVASAN RENTERIA FACC, ALI FACP CCDS Ot K21.9 GASTRO-ESOPHAGEAL REFLUX DISEASE WITHOUT 09/23/2016 SRINIVASAN SOARESC, ALI FACP CCDS Ot R60.9 EDEMA, UNSPECIFIED 09/23/2016 SRINIVASAN RENTERIA FACC, ALI FACP CCDS Ot Z79.899 OTHER JAIL (CURRENT) DRUG THERAPY 09/23/2016 SRINIVASAN RENTERIA FACC, ALI FACP CCDS Ot Z95.5 PRESENCE OF CORONARY ANGIOPLASTY IMPLANT 10/06/2016 SRINIVASAN RENTERIA FACC, ALI FACP CCDS Ot I25.10 ATHSCL HEART DISEASE OF [place] CORONARY 10/07/2016 SRINIVASAN RENTERIA FACC, ALI FACP CCDS Ot E78.4 OTHER HYPERLIPIDEMIA 10/07/2016 SRINIVASAN RENTERIA FACC, ALI FACP CCDS Ot I10 ESSENTIAL (PRIMARY) HYPERTENSION 10/07/2016 SRINIVASAN RENTERIA FACC, ALI FACP CCDS Ot I25.10 ATHSCL HEART DISEASE OF [place] CORONARY 10/07/2016 SRINIVASAN RENTERIA FACC, ALI FACP CCDS Ot I65.23 OCCLUSION AND STENOSIS OF BILATERAL [place] 10/07/2016 SRINIVASAN RENTERIA FACC, ALI FACP CCDS Ot R10.31 RIGHT LOWER QUADRANT PAIN 10/21/2016 SRINIVASAN RENTERIA FACC, ALI FACP CCDS Ot I10 ESSENTIAL (PRIMARY) HYPERTENSION 10/21/2016 SRINIVASAN RENTERIA FACC, ALI FACP CCDS Ot I25.10 ATHSCL HEART DISEASE OF [place] CORONARY 10/21/2016 SRINIVASAN RENTERIA FACC, ALI FACP CCDS Ot K21.9 GASTRO-ESOPHAGEAL REFLUX DISEASE WITHOUT 10/21/2016 SRINIVASAN RENTERIA FACC, ALI FACP CCDS Ot R60.9 EDEMA, UNSPECIFIED 10/21/2016 SRINIVASAN RENTERIA FACC, ALI FACP CCDS Ot Z79.899 OTHER JAIL (CURRENT) DRUG THERAPY 10/21/2016 SRINIVASAN RENTERIA FACC, ALI FACP CCDS Ot Z95.5 PRESENCE OF CORONARY ANGIOPLASTY IMPLANT 10/27/2016 SRINIVASAN RENTERIA FACC, ALI FACP CCDS Ot E78.4 OTHER HYPERLIPIDEMIA 10/27/2016 SRINIVASAN RENTERIA FACC, ALI FACP CCDS Ot I10 ESSENTIAL (PRIMARY) HYPERTENSION 10/27/2016 SRINIVASAN RENTERIA FACC, ALI FACP CCDS Ot I25.10 ATHSCL HEART DISEASE OF [place] CORONARY 10/27/2016 SRINIVASAN RENTERIA FACC, ALI FACP [...] CCDS Ot I25.10 ATHSCL HEART DISEASE OF [place] CORONARY 11/04/2016 SRINIVASAN RENTERIA FACC, ALI FACP CCDS [...] SCREEN MAMMO-MALIGN NEOPLASM OF [place] 12/02/2017 SHAHBAZ EVRAS APRN Ot V76.12 OTH SCREEN MAMMO-MALIGN NEOPLASM [...] CCDS Ot I25.10 ATHSCL HEART DISEASE OF [place] CORONARY 12/02/2017 SRINIVASAN RENTERIA FACC, SOPHY FACP [...] CCDS Ot I25.10 ATHSCL HEART DISEASE OF [place] CORONARY 12/02/2017 SRINIVASAN RENTERIA FACC, ALI FACP [...] CCDS Ot I25.10 ATHSCL HEART DISEASE OF [place] CORONARY 12/02/2017 SRINIVASAN RENTERIA FACC, ALI FACP [...] CCDS Ot I25.10 ATHSCL HEART DISEASE OF [place] CORONARY 12/12/2018 SRINIVASAN MD FACC, ALI FACP [...] CCDS Ot I25.10 ATHSCL HEART DISEASE OF [place] CORONARY 12/12/2018 SRINIVASAN RENTERIA FACC, ALI FACP [...] CCDS Ot I25.10 ATHSCL HEART DISEASE OF [place] CORONARY 12/12/2018 SRINIVASAN RENTERIA FACC, ALI FACP [...] plasma calcium measurement (mass/volume) 8.5 mg/dL 8.5-10.1 Complete blood count (CBC) with automated white blood cell (WBC) differential - 02/07/19 22:38 Blood leukocytes automated count (number/volume) 5.3 10*3/uL 4.3-11.0 Blood erythrocytes automated count (number/volume) 4.27 10*6/uL 4.35-5.85 Venous blood hemoglobin measurement (mass/volume) 12.6 g/dL 11.5-16.0 Blood hematocrit (volume fraction) 38 % 35-52 Automated erythrocyte mean corpuscular volume 89 [foz_us] 80-99 Automated erythrocyte mean corpuscular hemoglobin (mass per erythrocyte) 30 pg 25-34 Automated erythrocyte mean corpuscular hemoglobin concentration measurement (mass/volume) 33 g/dL 32-36 Automated erythrocyte distribution width ratio 13.5 % 10.0- 14.5 Automated blood platelet count (count/volume) 213 10*3/uL 130-400 Automated blood platelet mean volume measurement 9.3 [foz_us] 7.4-10.4 Automated blood neutrophils/100 leukocytes 49 % 42-75 Automated blood lymphocytes/100 leukocytes 41 % 12-44 Blood monocytes/100 leukocytes 9 % 0-12 Automated blood eosinophils/100 leukocytes 1 % 0-10 Automated blood basophils/100 leukocytes 1 % 0-10 Blood neutrophils automated count (number/volume) 2.6 10*3 1.8-7.8 Blood lymphocytes automated count (number/volume) 2.2 10*3 1.0-4.0 Blood monocytes automated count (number/volume) 0.5 10*3 0.0- 1.0 Automated eosinophil count 0.1 10*3/uL 0.0-0.3 Automated blood basophil count (count/volume) 0.0 10*3/uL 0.0-0.1 Comprehensive metabolic panel - 02/07/19 22:38 Serum or plasma sodium measurement (moles/volume) 136 mmol/L 135-145 Serum or plasma potassium measurement (moles/volume) 4.0 mmol/L 3.6-5.0 Serum or plasma chloride measurement (moles/volume) 101 mmol/L 98-107 Carbon dioxide 25 mmol/L 21-32 Serum or plasma anion gap determination (moles/volume) 10 mmol/L 5-14 Serum or plasma urea nitrogen measurement (mass/volume) 21 mg/dL 7-18 Serum or plasma creatinine measurement (mass/volume) 0.88 mg/dL 0.60-1.30 Serum or plasma urea nitrogen/creatinine mass ratio 24 NRG Serum or plasma creatinine measurement with calculation of estimated glomerular filtration rate > NRG Serum or plasma glucose measurement (mass/volume) 115 mg/dL 70-105 Serum or plasma calcium measurement (mass/volume) 9.2 mg/dL 8.5-10.1 Serum or plasma total bilirubin measurement (mass/volume) 0.3 mg/dL 0.1-1.0 Serum or plasma alkaline phosphatase measurement (enzymatic activity/volume) 61 U/L 40-136 Serum or plasma aspartate aminotransferase measurement (enzymatic activity/volume) 33 U/L 5-34 Serum or plasma alanine aminotransferase measurement (enzymatic activity/volume) 21 U/L 0-55 Serum or plasma protein measurement (mass/volume) 6.8 g/dL 6.4-8.2 Serum or plasma albumin measurement (mass/volume) 4.2 g/dL 3.2-4.5 CALCIUM CORRECTED 9.0 mg/dL 8.5-10.1 Magnesium - 02/07/19 22:38 Magnesium 2.4 mg/dL 1.8-2.4 Serum or plasma troponin i.cardiac measurement (mass/volume) - 02/07/19 22:38 Serum or plasma troponin i.cardiac measurement (mass/volume) 0.031 ng/mL <0.028 Complete urinalysis with reflex to culture - 02/07/19 23:28 Urine color determination YELLOW NRG Urine clarity determination CLEAR NRG Urine pH measurement by test strip 7 5-9 Specific gravity of urine by test strip 1.015 1.016-1.022 Urine protein assay by test strip, semi-quantitative 1+ NEGATIVE Urine glucose detection by automated test strip NEGATIVE NEGATIVE Erythrocytes detection in urine sediment by light microscopy NEGATIVE NEGATIVE Urine ketones detection by automated test strip NEGATIVE NEGATIVE Urine nitrite detection by test strip NEGATIVE NEGATIVE Urine total bilirubin detection by test strip NEGATIVE NEGATIVE Urine urobilinogen measurement by automated test strip (mass/volume) NORMAL NORMAL Urine leukocyte esterase detection by dipstick 3+ NEGATIVE Automated urine sediment erythrocyte count by microscopy (number/high power field) NONE NRG Automated urine sediment leukocyte count by microscopy (number/high power field) [HPF] NRG Bacteria detection in urine sediment by light microscopy FEW NRG Squamous epithelial cells detection in urine sediment by light microscopy 2-5 NRG Crystals detection in urine sediment by light microscopy NONE NRG Casts detection in urine sediment by light microscopy NONE NRG Mucus detection in urine sediment by light microscopy SMALL NRG Complete urinalysis with reflex to culture NO NRG Encounters ACCT No. Visit Date/Time Discharge Status Pt. Type Provider Facility Loc./Unit Complaint 04/201711/17/2018 23:25:10 11/17/2018 23:59:59 CLS Outpatient John Guillory. [id number] 12/12/2018 10:41:00 12/12/2018 23:59:59 CLS Outpatient JOHN GUILLORY DO [facility] RAD SCREENING [id number] 12/06/2017 10:48:00 12/06/2017 23:59:59 CLS Outpatient JOHN GUILLORY DO S [facility] RAD SCREENING [id number] 12/04/2016 12:31:00 12/04/2016 23:59:59 CLS Outpatient LINDSEY GUILLORY DOQUELINE S [facility] RAD SCREENING [id number] 10/06/2016 11:12:00 10/06/2016 23:59:59 CLS Outpatient SRINIVASAN RENTERIA FACC, ALI FACP CCDS [facility] RAD CAD,HLP,HTN [id number] 09/15/2016 06:57:00 09/16/2016 09:45:00 DIS Outpatient SRINIVASAN RENTERIA FACC, ALI FACP CCDS [facility] CATH ABNORMAL STRESS TEST,CAD,HTN,HL [id number] 07/21/2016 07:10:00 07/21/2016 23:59:59 CLS Outpatient SRINIVASAN RENTERIA FACC, ALI FACP CCDS [facility] CARD CAD,CHEST DISCOMFORT [id number] 07/06/2016 10:47:00 07/06/2016 23:59:59 CLS Outpatient SRINIVASAN RENTERIA FACC, ALI FACP CCDS [facility] CARD CAD,CHEST DISCOMFORT [id number] 07/01/2016 15:18:00 07/01/2016 23:59:59 CLS Outpatient SRINIVASAN RENTERIA FACC, ALI FACP CCDS [facility] RAD CHEST DISCOMFORT [id number] 12/03/2015 11:57:00 12/03/2015 23:59:59 CLS Outpatient LINDSEY GUILLORY DOQUELINE S [facility] RAD SCREENING [id number] 11/30/2014 13:43:00 11/30/2014 23:59:59 CLS Outpatient LINDSEY GUILLORY DOQUELINE S [facility] RAD SCREENING [id number] 11/20/2014 07:33:00 11/20/2014 23:59:59 CLS Outpatient SRINIVASAN RENTERIA FACC, ALI FACP CCDS [facility] CARD CAD,HLP,HTN, [id number] 06/19/2014 11:03:00 06/19/2014 23:59:59 CLS Outpatient KARMEN GRAY MD [facility] RAD THYROID NODULE [id number] 12/19/2013 10:43:00 12/19/2013 23:59:59 CLS Outpatient KARMEN GRAY MD [facility] RAD THYROID NODULE [id number] 11/29/2013 10:26:00 11/29/2013 23:59:59 CLS Outpatient SHAHBAZ VERAS APRN [facility] RAD SCREENING [id number] 12/12/2012 11:26:00 12/12/2012 23:59:59 CLS Outpatient KARMEN GRAY MD [facility] RAD SCREENING [id number] 02/07/2019 22:51:00 Document Registration [id number] 12/07/2011 09:57:00 Document Registration [id number] 04/07/2011 09:56:00 Document Registration [id number] 03/03/2011 09:33:00 Document Registration
[2019-02-08 00:46] VITALS: BP 185/90
[2019-02-08] MEDS ORDERED: NS IV 1000 ML 1,000 ML ONE (02:00)
[2019-02-08] MEDS ORDERED: diphenhydrAMINE 25 MG TAB (BENADRYL) PO PRN (02:15)
[2019-02-08] MEDS ORDERED: NS IV 1000 ML 1,000 ML IV SCH (02:15)
[2019-02-08] MEDS ORDERED: ACETAMINOPHEN 500 MG TAB (TYLENOL) PO PRN (02:15)
[2019-02-08 04:32] VITALS: BP 132/70
[2019-02-08 06:40] LABS: BASOPHILS % (AUTO) 0 % (0-10); EOSINOPHILS # (AUTO) 0.1 10^3/uL (0.0-0.3); EOSINOPHILS % (AUTO) 1 % (0-10); HEMATOCRIT 35 % (35-52); HEMOGLOBIN 11.5 G/DL (11.5-16.0); LYMPHOCYTES # (AUTO) 1.6 X 10^3 (1.0-4.0); LYMPHOCYTES % (AUTO) 28 % (12-44); MEAN CORPUSCULAR HEMOGLOBIN 30 PG (25-34); MEAN CORPUSCULAR HGB CONC 33 G/DL (32-36); MEAN CORPUSCULAR VOLUME 90 FL (80-99); MEAN PLATELET VOLUME 9.5 FL (7.4-10.4); MONOCYTES # (AUTO) 0.6 X 10^3 (0.0-1.0); MONOCYTES % (AUTO) 10 % (0-12); NEUTROPHILS # (AUTO) 3.4 X 10^3 (1.8-7.8); NEUTROPHILS % (AUTO) 61 % (42-75); PLATELET COUNT 190 10^3/uL (130-400); RED CELL DISTRIBUTION WIDTH 13.5 % (10.0-14.5); WHITE BLOOD COUNT 5.6 10^3/uL (4.3-11.0)
[2019-02-08 06:57] LABS: BUN/CREATININE RATIO 21; CALCIUM 8.4 MG/DL (8.5-10.1); CARBON DIOXIDE 25 MMOL/L (21-32); CHLORIDE 106 MMOL/L (98-107); CREATININE SERUM 0.72 MG/DL (0.60-1.30); GFR ESTIMATED > 60; GLUCOSE 94 MG/DL (70-105); POTASSIUM 3.8 MMOL/L (3.6-5.0); SODIUM 138 MMOL/L (135-145)
--- NOTE | 2019-02-08 07:17 | NUR ---
pt was admitted from er. a/o denies c/o states she feels great. sl in place patent room air vss
[2019-02-08 08:00] VITALS: BP 142/68
[2019-02-08] MEDS ORDERED: ATEN50TA PO (08:36)
[2019-02-08] MEDS ORDERED: PRAV10TA PO (08:36)
[2019-02-08] MEDS ORDERED: MULT-17 PO (09:33)
[2019-02-08] MEDS ORDERED: ACET-2469 PO (09:33)
--- NOTE | 2019-02-08 09:38 | NUR ---
SPOKE WITH PATIENT, SHE WAS ABLE TO TELL ME HER MEDICATIONS (IT MATCHED WITH HER EXTERNAL MED HISTORY). OTC MEDICATIONS: ASPIRIN 81MG CHILDREN'S MULTI-VITAMIN W/ IRON TYLENOL PM
[2019-02-08 12:00] VITALS: BP 119/59
--- NOTE | 2019-02-08 12:05 | Cardiology History & Physical ---
HPI-Cardiology Cardiology H&P Date of Admission 02/08/19 Primary Care Physician Kristy Guillory DO Attending Physician Jeannie Stewart MD, MA [facility] Consulting Physician [facility] 78 yo woman admitted through in the early hours of today with an episode of near-syncope/syncope at home. Had been at her son's birthday democrat. Had been standing nearly stationary for about half an hour, became dizzy and began to fall. Son got up and prevented the fall. She regained consciousness in a few seconds of being put down. No cp or palp or other symptoms. Has been on a wgt l oss diet lately and has lost a considerable amount of wgt. Oral intake has been low Review of Systems-Cardiology Review of Systems Constitutional: No malaise, No tiredness; weight loss (intentional); No weight gain Ears/Nose/Throat: No ear discharge, No nasal drainage, No recent hearing loss Respiratory: As described under HPI Cardiovascular: As described under HPI Gastrointestinal: No constipation, No diarrhea, No nausea, No vomiting Genitourinary: No dysuria : No Musculoskeletal: No back pain, No joint pain Skin: No rash, No ulcerations Psychiatric/Neurological: As described under HPI; No focal weakness Hematologic: No bleeding abnormalities SIF-Hogjct-Eqbrvq Hx Patient Social History Alcohol Use: Denies Use Recreational Drug Use: No Smoking Status: Never a Smoker Recent Foreign Travel: No Recent Infectious Disease Expo: No Hospitalization with Isolation: Denies Immunizations Up To Date Date of Pneumonia Vaccine: Feb 09, 2016 Date of Influenza Vaccine: Jun 15, 2016 Past Medical History PMH As described under Assessment. Family Medical History Family History: Arthritis 19 MOTHER Diabetes mellitus 19 FATHER Glaucoma 19 MOTHER Hypertension 19 MOTHER Visual disorder 19 FATHER 19 MOTHER Allergies and Home Medications Allergies Coded Allergies: hydrocodone (Verified Allergy, Unknown, 07/26/08) penicillin G (Verified Allergy, Unknown, 07/26/08) Home Medications Acetaminophen/Diphenhydramine 1 Each Tablet, 1 TAB PO HS PRN for INSOMNIA, (Reported) Aspirin 81 Mg Tab.chew, 81 MG PO DAILY Prescribed by: JEANNIE STEWART on 09/16/16 0904 Atenolol 50 Mg Tablet, 50 MG PO DAILY, (Reported) Multivitamins with Iron 1 Each Tab.chew, 1 TAB PO DAILY, (Reported) Pravastatin Sodium 10 Mg Tablet, 10 MG PO HS, (Reported) Patient Home Medication List Home Medication List Reviewed: Yes Physical Exam-Cardiology Physical Exam Vital Signs/I&O 02/08/19 02/08/19 02/08/19 02/08/19 00:46 00:46 00:48 02:20 Temp 98.7 96.3 Pulse 64 59 69 Resp 18 18 B/P (MAP) 185/90 (121) 150/94 (112) Pulse Ox 100 100 100 O2 Delivery Room Air Room Air Room Air 02/08/19 02/08/19 02/08/19 02/08/19 04:32 07:27 08:00 08:00 Temp 97.1 98.4 Pulse 61 56 63 Resp 18 18 B/P (MAP) 132/70 (90) 142/68 (92) Pulse Ox 100 99 O2 Delivery Room Air Room Air Room Air Capillary Refill : Less Than 3 Seconds Constitutional: AAO x 3, well-developed, well-nourished HEENT: PERRL, oral hygience is good; No xanthelasmas are seen Neck: carotid pulses are 2 + bilaterally, with good upstrokes Respiratory: No accessory muscle use; lungs clear to percussion Cardiovascular: regular rate-rhythm, S1 and S2, systolic murmur (soft ANTONIETTA at card base) Gastrointestinal: No tender; soft; No guarding, No rebound; audible bowel sounds Extremities: No cyanosis, No significant edema Neurologic/Psychiatric: oriented x 3, grossly intact, power is 5/5 both on sides Skin: No rash on exposed areas, No ulcerations on exposed areas Data Review Labs Laboratory Tests 02/07/19 22:38: White Blood Count 5.3, Red Blood Count 4.27L, Hemoglobin 12.6, Hematocrit 38, Mean Corpuscular Volume 89, Mean Corpuscular Hemoglobin 30, Mean Corpuscular Hemoglobin Concent 33, Red Cell Distribution Width 13.5, Platelet Count 213, Mean Platelet Volume 9.3, Neutrophils (%) (Auto) 49, Lymphocytes (%) (Auto) 41, Monocytes (%) (Auto) 9, Eosinophils (%) (Auto) 1, Basophils (%) (Auto) 1, Neutrophils # (Auto) 2.6, Lymphocytes # (Auto) 2.2, Monocytes # (Auto) 0.5, Eosinophils # (Auto) 0.1, Basophils # (Auto) 0.0, Sodium Level 136, Potassium Level 4.0, Chloride Level 101, Carbon Dioxide Level 25, Anion Gap 10, Blood Urea Nitrogen 21H, Creatinine 0.88, Estimat Glomerular Filtration Rate > 60, BUN/Creatinine Ratio 24, Glucose Level 115H, Calcium Level 9.2, Corrected Calcium 9.0, Magnesium Level 2.4, Total Bilirubin 0.3, Aspartate Amino Transf (AST/SGOT) 33, Alanine Aminotransferase (ALT/SGPT) 21, Alkaline Phosphatase 61, Troponin I 0.031H, Total Protein 6.8, Albumin 4.2 02/07/19 23:28: Urine Color YELLOW, Urine Clarity CLEAR, Urine pH 7, Urine Specific [place] 1.015L, Urine Protein 1+H, Urine Glucose (UA) NEGATIVE, Urine Ketones NEGATIVE, Urine Nitrite NEGATIVE, Urine Bilirubin NEGATIVE, Urine Urobilinogen NORMAL, Urine Leukocyte Esterase 3+H, Urine RBC (Auto) NEGATIVE, Urine RBC NONE, Urine WBC 2-5, Urine Squamous Epithelial Cells 2-5, Urine Crystals NONE, Urine Bacteria FEWH, Urine Casts NONE, Urine Mucus SMALLH, Urine Culture Indicated NO 02/08/19 06:16: White Blood Count 5.6, Red Blood Count 3.88L, Hemoglobin 11.5, Hematocrit 35, M mariam Corpuscular Volume 90, Mean Corpuscular Hemoglobin 30, Mean Corpuscular Hemoglobin Concent 33, Red Cell Distribution Width 13.5, Platelet Count 190, Mean Platelet Volume 9.5, Neutrophils (%) (Auto) 61, Lymphocytes (%) (Auto) 28, Monocytes (%) (Auto) 10, Eosinophils (%) (Auto) 1, Basophils (%) (Auto) 0, Neutrophils # (Auto) 3.4, Lymphocytes # (Auto) 1.6, Monocytes # (Auto) 0.6, Eosinophils # (Auto) 0.1, Basophils # (Auto) 0.0, Sodium Level 138, Potassium Level 3.8, Chloride Level 106, Carbon Dioxide Level 25, Anion Gap 7, Blood Urea Nitrogen 15, Creatinine 0.72, Estimat Glomerular Filtration Rate > 60, BUN/Creatinine Ratio 21, Glucose Level 94, Calcium Level 8.4L, Troponin I < 0.028 Laboratory Tests 02/07/19 22:38 02/08/19 06:16 A/P-Cardiology Assessment/Admission Diagnosis Near-syncope, likely due to orthostatic hypotension No evidence of any significant arrhythmia. No evidence of [place] (type 1 or type 2) Coronary artery disease with a history of drug eluting stenting of the mid left anterior descending artery with Promus 2.75 x 12 mm stent in October 2010. Last card cath of 09/15/16 following abnormal MP of 07/21/16 showed the previous stent to be patent and patient underwent Alpine Xience 2.7 x 23 mm stenting for 70% prox LAD stenosis (post-dilated with 3 mm noncompliant balloon). Stents are nonoverlapping. LVEF was 65-70%; LVEDP was normal Echo of 07/06/16: LVEF 60%, triv to mild MR and TR, mild diastolic dysfunction of the LV, no valvular stensosis, PASP WNL Hypertension Chronic intermittent bilateral lower leg edema, likely related to venous insufficiency, currently controlled Minimal carotid arterial disease on ultrasonography of May 2016 Gastroesophageal reflux Intolerance to lovastatin but she has been able to tolerate low dose pravastatin. Lipid profile is currently well controlled History of left hip sciatica which is currently well controlled History of bilat knee replacement Admission Status: Observation Discussion and Recomendations * Reduce bp meds * Discussed ILR implantation. She does not want that. States will do it if has more of it * Outpt f/u Clinical Quality Measures DVT/VTE Risk/Contraindication: Risk Factor Score Per Nursin RFS Level Per Nursing on Admit: 2=Moderate JEANNIE STEWART MD FACP [facility] CCDS Feb 08, 2019 12:05
[2019-02-08] MEDS ORDERED: ASPIRIN 81 MG CHEW (CHILDREN'S ASA) PO ONE (12:15)
--- NOTE | 2019-02-08 15:15 | NUR ---
Initial visit with Chaplain Caitlin Orellana. Provided pt with Living will per her request. She said she completed a Living Will with her first when the hospital was still [facility]. Pt requested to fill it out again as the previous documents are not on record at the hospital. PT WANTS TO BE A DNR AND REQUESTED THIS TAKE PLACE BEFORE BEING DISCHARGED FROM THE HOSPITAL IF POSSIBLE. left note with pt's nurse with this request. Addendum: 02/08/19 at 1607 by REY LAUREANO PAST Clarification obtained from pt after this visit: Pt desires FUL CODE at this time.
--- NOTE | 2019-02-08 15:30 | NUR ---
Follow up visit: In this conversation, it was clarified that the pt DESIRES TO BE FULL CODE at this time. She further explained that she thought she was completing a DNR with the doctor in the ER when she was actually discussing Advanced Directives. Although in our prior conversation the pt said she wanted to be a DNR, she clarified that she was speaking in the context of having a debilitating illness from which she could not recover. So at this time she is a full code and desires to remain so. The pt said she and her children discussed her desired medical interventions with the ER doctor. She requests notes on this discussion because she cannot recall the details. I relayed this message to the RN. This land leveler immediately clarified pt's code status with the nurse following our visit.
[2019-02-08 15:45] VITALS: BP 133/71
--- NOTE | 2019-02-08 17:30 | Discharge Inst-Cardiology ---
Discharge Inst-Cardiac Discharge Medications Continued Medications: Acetaminophen/Diphenhydramine (Tylenol Pm Ex-Strength Caplet) 1 Each Tablet 1 TAB PO HS PRN for INSOMNIA, TAB Aspirin (Aspirin) 81 Mg Tab.chew 81 MG PO DAILY, #90 TAB 3 Refills Multivitamins with Iron (Child Chew + Iron) 1 Each Tab.chew 1 TAB PO DAILY, TAB Pravastatin Sodium (Pravastatin Sodium) 10 Mg Tablet 10 MG PO HS, TAB Discontinued Medications: Atenolol (Atenolol) 50 Mg Tablet 50 MG PO DAILY, TAB Patient Instructions Patient Instructions: Follow up with Dr Stewart in 1-2 weeks SOPHY STEWART MD FACP [facility]S Feb 08, 2019 17:30
[2019-02-08 18:30] VITALS: BP 133/71
--- NOTE | 2019-02-08 18:30 | NUR ---
COCO EMERSON demonstrates understanding of discharge instructions and accurately returns instructions upon questioning. Copy of Post-Discharge Instructions and Medication Discharge Instructions given to PATIENT. COCO EMERSON is able to manage continuing needs after discharge. Patients belongings returned to [facility]. Skin dry and intact; no breakdown noted. Patient discharged from [facility] on at 1830. COCO EMERSON left floor via WHEELCHAIR, accompanied by STAFF.
[2019-02-09] MEDS ORDERED: ASPIRIN 81 MG CHEW (CHILDREN'S ASA) PO SCH (09:00)
[2019-02-09] MEDS ORDERED: PATIENT MAY USE OWN MED,SINGLE MED PO SCH (09:00)
--- NOTE | 2019-02-10 14:31 | Physician Query-Final Dx ---
ELY TAN 02/10/19 1431: Final Diagnosis Give Final Diagnosis Please give Final Diagnosis SOPHY MATTSON MD [facility] CCDS 02/13/19 1920: Final Diagnosis Give Final Diagnosis Near-syncope, likely due to orthostatic hypotension No evidence of any significant arrhythmia. No evidence of [place] (type 1 or type 2) Coronary artery disease with a history of drug eluting stenting of the mid left anterior descending artery with Promus 2.75 x 12 mm stent in October 2010. Last card cath of 09/15/16 following abnormal MP of 07/21/16 showed the previous stent to be patent and patient underwent Alpine Xience 2.7 x 23 mm stenting for 70% prox LAD stenosis (post-dilated with 3 mm noncompliant balloon). Stents are nonoverlapping. LVEF was 65-70%; LVEDP was normal Echo of 07/06/16: LVEF 60%, triv to mild MR and TR, mild diastolic dysfunction of the LV, no valvular stensosis, PASP WNL Hypertension Chronic intermittent bilateral lower leg edema, likely related to venous insufficiency, currently controlled Minimal carotid arterial disease on ultrasonography of May 2016 Gastroesophageal reflux Intolerance to lovastatin but she has been able to tolerate low dose pravastatin. Lipid profile is currently well controlled History of left hip sciatica which is currently well controlled History of bilat knee replacement ELY TAN Feb 10, 2019 14:31 SOPHY MATTSON MD [facility] Feb 13, 2019 19:20
== END 2019-02-08 17:28 | disposition home or self-care (01) ==
LOC: EDUNIT# 22:18 → ER 22:19 → 4TH 23:59
PROVIDERS: ADMIT Internal Medicine Cardiovascular Disease; ATTEND Internal Medicine Cardiovascular Disease
DX: R55 Syncope and collapse (principal); I25.10 Atherosclerotic heart disease of native coronary artery without angina pectoris; I10 Essential (primary) hypertension; I08.0 Rheumatic disorders of both mitral and aortic valves; R60.0 Localized edema; K21.9 Gastro-esophageal reflux disease without esophagitis; Z79.899 Other long term (current) drug therapy; Z79.82 Long term (current) use of aspirin; Z95.5 Presence of coronary angioplasty implant and graft
CPT/HCPCS: 36415; 80048; 80053; 81000; 83735; 84484; 85025; 93005; 93041; 96360; G0378

== ENCOUNTER → 2020-01-23 | Outpatient (CLI) | payer MEDICARE, BC ==
[~2020-01-23] VITALS: Ht 163 cm; Wt 78.0 kg
[~2020-01-23] MED LIST changes: +ACET-2715 PO; +ALPRAZolam 0.25 MG (XANAX) TAB PO ONE; +CATHETER FLUSH 10 ML SYR IV PRN; +MULT-17 PO; +PRAV10TA PO; +REGADENOSON 0.4 MG/5 ML SYR (LEXISCAN) IV ONE
[2020-01-23 09:22] VITALS: BP 158/80
--- NOTE | 2020-01-23 17:57 | STRESS TEST ---
DATE OF SERVICE: 01/23/2020 RESTING AND POST REGADENOSON TECHNETIUM-99M TETROFOSMIN SPECT CT IMAGING Baseline images were carried out after injection of 10.28 mCi of technetium-99m Tetrofosmin. This was followed by 0.4 mg Regadenoson and 30 mCi of technetium-99m Tetrofosmin for stress imaging. The electrocardiogram showed sinus rhythm at baseline and did not change significantly with regadenoson infusion. The patient tolerated the procedure well. This is a technically difficult study. There is significant patient motion during image acquisition during the stress part of the study. This makes interpretation quite difficult. It seems that there is no distinct perfusion defects consistent with significant myocardial ischemia or infarction. Gated images show normal global left ventricular systolic function with normal regional wall motion. Left ventricular ejection fraction is calculated to be 57%. CONCLUSIONS: 1. This is a technically difficult study due to the patient motion during stress image acquisition. 2. There does not appear to be distinct evidence of significant myocardial ischemia or infarction. 3. Well preserved global left ventricular systolic function with ejection fraction of 57% without distinct regional wall motion abnormality. Job ID: [id number] DocumentID: [id number] Dictated Date: 01/23/2020 15:48:07 Bull Driver Date: 01/23/2020 17:57:22 Dictated By: SOPHY MATTSON MD, MA, FACP, FACC,
== END ==
LOC: CARD 07:48
PROVIDERS: ATTEND Internal Medicine Cardiovascular Disease
DX: I25.10 Atherosclerotic heart disease of native coronary artery without angina pectoris (principal); I65.23 Occlusion and stenosis of bilateral carotid arteries; E78.5 Hyperlipidemia, unspecified; I10 Essential (primary) hypertension
CPT/HCPCS: 78452; 93017

== ENCOUNTER → 2020-04-09 | Outpatient (CLI) | payer MEDICARE, BC ==
[~2020-04-09] MED LIST changes: -ALPRAZolam 0.25 MG (XANAX) TAB PO ONE; -CATHETER FLUSH 10 ML SYR IV PRN; -REGADENOSON 0.4 MG/5 ML SYR (LEXISCAN) IV ONE
--- NOTE | 2020-04-09 17:01 | Diagnostic Imaging Report ---
INDICATION: Routine screening. COMPARISON: 12/12/2018 and 12/06/2017. TECHNIQUE: 2D and 3D bilateral screening mammography was performed with CAD. FINDINGS: Scattered fibroglandular densities are noted bilaterally. The parenchymal pattern is stable. No mass or malignant appearing microcalcifications are seen. The axillae are unremarkable. IMPRESSION: No mammographic features suspicious for malignancy are identified. ACR BI-RADS Category 1: Negative. Result letter will be mailed to the patient. Note: At least 10% of breast cancer is not imaged by mammography. Dictated by: Dictated on workstation # [id number]
== END ==
LOC: RAD 12:58
PROVIDERS: ATTEND Family Medicine
DX: Z12.31 Encounter for screening mammogram for malignant neoplasm of breast (principal)
CPT/HCPCS: 77063; 77067

== ENCOUNTER → 2021-04-10 | Outpatient (CLI) | payer MEDICARE, BC ==
[~2021-04-10] MED LIST changes: -ACET-2715 PO; +ACET-3075 PO; +ASPI-1238 PO; -ASPI-983 PO; -MULT-17 PO; +MULT-18 PO
--- NOTE | 2021-04-11 08:48 | Diagnostic Imaging Report ---
INDICATION: Routine screening. Comparison is made prior mammogram 04/09/2020 and 12/12/2018. 2-D and 3-D bilateral screening mammography was performed with CAD. Scattered fibroglandular densities are identified bilaterally. No mass or malignant-appearing microcalcifications are seen. Axillae are unremarkable. IMPRESSION: BI-RADS Category 1 No mammographic features suspicious for malignancy are identified. ACR BI-RADS Category 1: Negative. Result letter will be mailed to the patient. Note: At least 10% of breast cancer is not imaged by mammography. Dictated by: Dictated on workstation # [id number]
== END ==
LOC: RAD 15:15
PROVIDERS: ATTEND Family Medicine
DX: Z12.31 Encounter for screening mammogram for malignant neoplasm of breast (principal)
CPT/HCPCS: 77063; 77067

== ENCOUNTER → 2022-04-14 | Outpatient (CLI) | payer MEDICARE, BC ==
--- NOTE | 2022-04-14 15:04 | Diagnostic Imaging Report ---
Indication: Routine screening. Comparison is made with prior mammogram from 04/10/2021 and 04/09/2020. 2-D and 3-D bilateral screening mammography was performed with CAD. CAD is utilized. The current study was also evaluated with a Computer Aided Detection (CAD) system. Scattered fibroglandular densities are identified bilaterally. The parenchymal pattern is stable. No mass or malignant-appearing microcalcifications are seen. There are benign calcifications. Axillae are unremarkable. IMPRESSION: BI-RADS Category 2 No mammographic features suspicious for malignancy are identified. ACR BI-RADS Category 2: Benign findings. Result letter will be mailed to the patient. Note: At least 10% of breast cancer is not imaged by mammography. Dictated by: Dictated on workstation # [id number]
== END ==
LOC: RAD 12:14
PROVIDERS: ATTEND Family Medicine
DX: Z12.31 Encounter for screening mammogram for malignant neoplasm of breast (principal)
CPT/HCPCS: 77063; 77067

== ENCOUNTER 2022-06-27 12:25 | Emergency (ER) | payer MEDICARE, BC ==
[~2022-06-27] VITALS: Ht 162 cm; Wt 81.6 kg
--- NOTE | 2022-06-27 12:56 | ED Back Pain ---
General Chief Complaint: Back Problems Stated Complaint: LEFT LOWER BACK/HIP/GROIN PAIN Nursing Triage Note: . (CHANTAL SCHUMACHER APRN) Source of Information: Patient Exam Limitations: No Limitations (SURESH RIOS DO) History of Present Illness Date Seen by Provider: Jun 27, 2022 Time Seen by Provider: 13:25 Initial Comments 82-year-old female presents for left buttock low back pain. Symptoms started when she woke up she think she may have "slept on it wrong." No weakness numbness or tingling. No saddle anesthesia. No loss of bowel or bladder control. (SURESH RIOS DO) Allergies and Home Medications Allergies Coded Allergies: hydrocodone (Verified Allergy, Unknown, 07/26/08) penicillin G (Verified Allergy, Unknown, 07/26/08) Patient Home Medication List Home Medication List Reviewed: Yes (CHANTAL SCHUMACHER APRN) Home Medication List Reviewed: Yes (SURESH RIOS DO) Acetaminophen/Diphenhydramine (Tylenol Pm Ex-Strength Caplet) 1 Each Tablet, 1 TAB PO HS PRN for INSOMNIA, (Reported) Entered as Reported by: MILADYS VICKERS on 02/08/19 0933 Aspirin (Aspirin) 81 Mg Tab.chew, 81 MG PO DAILY Prescribed by: SOPHY MATTSON on 09/16/16 0904 Cyclobenzaprine HCl (Cyclobenzaprine HCl) 5 Mg Tablet, 5 MG PO Q6H Prescribed by: SURESH RIOS MD on 06/27/22 1327 Multivitamins with Iron (Child Chew + Iron) 1 Each Tab.chew, 1 TAB PO DAILY, (Reported) Entered as Reported by: MILADYS VICKERS on 02/08/19 0933 Pravastatin Sodium (Pravastatin Sodium) 10 Mg Tablet, 10 MG PO HS, (Reported) Entered as Reported by: MILADYS VICKERS on 02/08/19 0836 Review of Systems Constitutional: see HPI EENTM: see HPI Respiratory: see HPI Cardiovascular: see HPI Gastrointestinal: see HPI Genitourinary: see HPI Musculoskeletal: see HPI Skin: see HPI Psychiatric/Neurological: No Symptoms Reported, See HPI (CHANTAL SCHUMACHER APRN) Past Yhrcwbd-Ugtckd-Azilnu Hx Patient Social History Tobacco Use?: No Substance use?: No Alcohol Use?: No (CHANTAL SCHUMACHER APRN) Immunizations Up To Date COVID19 Vaccine Wafer Fabrication Operator: RAMOS (CHANTAL SCHUMACHER APRN) Seasonal Allergies Seasonal Allergies: No (CHANTAL SCHUMACHER APRN) Past Medical History Surgery/Hospitalization HX: CAD WITH STENTS, BI LAT KNEE REPLACEMENT Surgeries: Yes Coronary Stent Respiratory: No Cardiac: Yes Coronary Artery Disease, Hypertension Neurological: No Reproductive Disorders: No Genitourinary: No Gastrointestinal: No Musculoskeletal: No Endocrine: No HEENT: No Cancer: No Psychosocial: No Blood Disorders: No (CHANTAL SCHUMACHER APRN) Family Medical History Arthritis 19 MOTHER Diabetes mellitus 19 FATHER Glaucoma 19 MOTHER Hypertension 19 MOTHER Visual disorder 19 FATHER 19 MOTHER Physical Exam Vital Signs Vital Signs - First Documented 06/27/22 12:40 Temp 36.9 Pulse 78 Resp 18 B/P (MAP) 175/92 (119) Pulse Ox 97 O2 Delivery Room Air (SURESH ROIS DO) Vital Signs Capillary Refill : Less Than 3 Seconds (CHANTAL SCHUMACHER APRN) Height, Weight, BMI Height: 5'4.00" Weight: 161lbs. 7.0oz. [id number]; 31.00 BMI Method:Stated (CHANTAL SCHUMACHER APRN) General Appearance: No Apparent Distress, WD/WN HEENT: Normal ENT Inspection, Pharynx Normal Neck: Full Range of Motion, Normal Inspection, Non Tender, Supple Cardiovascular: Regular Rate, Rhythm, No Edema, No Gallop, No JVD, No Murmur, Normal Peripheral Pulses Respiratory: Chest Non Tender, Lungs Clear, Normal Breath Sounds, No Accessory Muscle Use, No Respiratory Distress Gastrointestinal: Normal Bowel Sounds, No Organomegaly, No Pulsatile Mass, Non Tender, Soft Back: Normal Inspection, No CVA Tenderness, Other (Tenderness palpation the left buttock, sciatic nerve area.) Extremity: Normal Capillary Refill, Normal Inspection, Normal Range of Motion, Non Tender, No Calf Tenderness, No Pedal Edema Neurologic/Psychiatric: Alert, Oriented x3, No Motor/Sensory Deficits, Normal 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 She has no midline tenderness on left lateral tenderness in the sciatic nerve area and her symptoms are consistent with sciatica. There is no indication for herniated disc, spinal nerve entrapment, cauda equina or other cord syndrome. Treated conservatively with pain control and discharged. (SURESH RIOS DO) Impression Primary Impression: Sciatica of left side Disposition: HOME, SELF-CARE Condition: Stable Departure-Patient Inst. Referrals: JOHN PITTMAN DO (PCP/Family) Primary Care Physician Patient Instructions: Sciatica Add. Discharge Instructions: Alternate ibuprofen and Tylenol as needed for pains. Use the muscle relaxer for muscle spasm and to help you get some rest in the evenings. These may make you drowsy so do not drive or make important decisions while you are taking them. Return to the emergency department immediately if you develop any weakness or numbness in your legs, loss of bowel or bladder control. Follow-up with your primary doctor within the next week should your symptoms not improved. All discharge instructions reviewed with patient and/or family. Voiced understanding. Scripts Cyclobenzaprine HCl (Cyclobenzaprine HCl) 5 Mg Tablet 5 MG PO Q6H for Muscle Spasms for 3 Days, #12 TAB Prov: SURESH RIOS DO 06/27/22 CHANTAL SCHUMACHER APRN Jun 27, 2022 12:56 SURESH RIOS DO Jun 27, 2022 13:25
[2022-06-27] MEDS ORDERED: CYCL5TAB PO (13:27)
--- NOTE | 2022-06-27 13:29 | Diagnostic Imaging Report ---
INDICATION: Hip pain, back pain. COMPARISON: None available. TECHNIQUE: Three radiographs of the pelvis and left hip dated 11/25/2021. FINDINGS: Significant degenerative changes are noted within the partially visualized lower lumbar spine. The sacroiliac joints are intact. Moderate degenerative changes of the pubic symphysis. No acute fracture or dislocation. No significant osseous process. Left femoral head maintains its normal shape and contour. Mild degenerative changes of the bilateral hips. IMPRESSION: No acute osseous abnormality with scattered osseous degenerative changes, greatest involving the lower lumbar spine and pubic symphysis. Dictated by: Dictated on workstation # [id number]
[2022-06-27] MEDS ORDERED: KETOROLAC 15 MG/ML VIAL IM ONE (13:30)
[2022-06-27 14:07] VITALS: BP 162/90
== END 2022-06-27 14:17 | disposition home or self-care (01) ==
LOC: EDUNIT# 12:25 → ER 12:28
DX: M54.42 Lumbago with sciatica, left side (principal)

== ENCOUNTER 2022-07-05 23:24 | Emergency (ER) | payer MEDICARE, BC ==
[~2022-07-05] VITALS: Ht 162.6 cm; Wt 81.6 kg
[~2022-07-05 23:24] MED LIST changes: +CYCL5TAB PO
[2022-07-05] MEDS ORDERED: LISI20TA26 PO (23:41)
--- NOTE | 2022-07-05 23:44 | ED General ---
General Chief Complaint: Cardiac/General Problems Stated Complaint: HIGH BP 192/107 Source of Information: Patient Exam Limitations: No Limitations History of Present Illness Date Seen by Provider: Jul 05, 2022 Time Seen by Provider: 23:30 Initial Comments 82-year-old female presents for high blood pressure. She has a history of high blood pressure but was taken off of atenolol about 3 years ago. She saw her primary doctor last week and her blood pressure was slightly high though she talked it up to her and being in the hospital and stress. She presents this evening with blood pressures in the 200s. She states she checked at home because she was feeling generally unwell and rundown. No specific symptoms. Denies chest pain, shortness of breath, headache, changes in vision. She does not currently take anything for blood pressure. Allergies and Home Medications Allergies Coded Allergies: hydrocodone (Verified Allergy, Unknown, 07/26/08) penicillin G (Verified Allergy, Unknown, 07/26/08) Patient Home Medication List Home Medication List Reviewed: Yes Acetaminophen/Diphenhydramine (Tylenol Pm Ex-Strength Caplet) 1 Each Tablet, 1 TAB PO HS PRN for INSOMNIA, (Reported) Entered as Reported by: MILADYS VICKERS on 02/08/19 09 Aspirin (Aspirin) 81 Mg Tab.chew, 81 MG PO DAILY Prescribed by: SOPHY MATTSON on 09/16/16 0904 Cyclobenzaprine HCl (Cyclobenzaprine HCl) 5 Mg Tablet, 5 MG PO Q6H Prescribed by: SURESH RIOS MD on 06/27/22 1327 Multivitamins with Iron (Child Chew + Iron) 1 Each Tab.chew, 1 TAB PO DAILY, (Reported) Entered as Reported by: MILADYS VICKERS on 02/08/19 0933 Pravastatin Sodium (Pravastatin Sodium) 10 Mg Tablet, 10 MG PO HS, (Reported) Entered as Reported by: MILADYS VICKERS on 02/08/19 0836 Review of Systems Review of Systems Constitutional: other (Hypertension) EENTM: no symptoms reported Respiratory: no symptoms reported Cardiovascular: no symptoms reported Gastrointestinal: no symptoms reported Genitourinary: no symptoms reported Musculoskeletal: no symptoms reported Skin: no symptoms reported Psychiatric/Neurological: No Symptoms Reported Hematologic/Lymphatic: No Symptoms Reported Immunological/Allergic: no symptoms reported Past Chotuab-Yrhhfu-Vysusb Hx Patient Social History Tobacco Use?: No Use of E-Cig and/or Vaping dev: No Substance use?: No Alcohol Use?: No Seasonal Allergies Seasonal Allergies: No Past Medical History Surgery/Hospitalization HX: CAD WITH STENTS, BI LAT KNEE REPLACEMENT Surgeries: Yes Coronary Stent Respiratory: No Cardiac: Yes Coronary Artery Disease, Hypertension Neurological: No Reproductive Disorders: No Genitourinary: No Gastrointestinal: No Musculoskeletal: No Endocrine: No HEENT: No Cancer: No Psychosocial: No Blood Disorders: No Family Medical History Reviewed Nursing Family Hx Arthritis 19 MOTHER Diabetes mellitus 19 FATHER Glaucoma 19 MOTHER Hypertension 19 MOTHER Visual disorder 19 FATHER 19 MOTHER No Pertinent Family Hx Physical Exam Vital Signs Capillary Refill : Height, Weight, BMI Height: 5'4.00" Weight: 161lbs. 7.0oz. [id number]; 31.00 BMI Method:Stated General Appearance: No Apparent Distress, WD/WN HEENT: PERRL/EOMI, Normal ENT Inspection, Pharynx Normal Neck: Full Range of Motion, Non Tender, Supple Respiratory: Chest Non Tender, Lungs Clear, Normal Breath Sounds, No Accessory Muscle Use, No Respiratory Distress Cardiovascular: Regular Rate, Rhythm, No Edema, No Gallop, No JVD, No Murmur, Normal Peripheral Pulses, Other (Hypertension) Gastrointestinal: Normal Bowel Sounds, No Organomegaly, No Pulsatile Mass, Non Tender, Soft Extremity: Normal Capillary Refill Neurologic/Psychiatric: Alert, Oriented x3, No Motor/Sensory Deficits, Normal Mood/Affect, psychiatry physician II-XII Norm as Tested Skin: Normal Color, Warm/Dry Lymphatic: No Adenopathy Progress/Results/Core Measures Suspected Sepsis SIRS Temperature: Pulse: Respiratory Rate: Blood Pressure / Mean: Results/Orders Vital Signs/I&O Capillary Refill : Departure Communication (Admissions) Patient does have significant hypertension however she is relatively asympt omatic. She saw her primary doctor last week and was told her blood pressure was slightly high. She told them she was stressed about her being in the hospital and this was thought to be causative. We will go ahead and start her on something for blood pressure this evening, I think lisinopril is the best choice at this time. She will take this daily and keep a log of her blood pressures and follow-up with primary doctor. Given strict return precautions for chest pain, vision changes. She states understanding. Discharged in stable condition. Impression Primary Impression: Hypertension Qualified Codes: I10 - Essential (primary) hypertension Disposition: 01 HOME, SELF-CARE Condition: Stable Departure-Patient Inst. Referrals: JOHN PITTMAN DO (PCP/Family) Primary Care Physician Patient Instructions: High Blood Pressure (DC) Add. Discharge Instructions: You were seen in the emergency department today for elevated blood pressures. As discussed I have started you on a medicine called lisinopril. Take this daily. Keep a log of your blood pressures 3 times a day randomly throughout the day and follow-up with your primary doctor in the next 3 to 4 days for further evaluation and discussion of blood pressure management further. Return to the emergency department if you have any changes in your vision, severe chest pain or if your symptoms change in any way concerning to you. All discharge instructions reviewed with patient and/or family. Voiced understanding. Scripts Lisinopril (Lisinopril) 20 Mg Tablet 20 MG PO DAILY for 14 Days, #14 TAB Prov: SURESH RIOS DO 07/05/22 SURESH RIOS DO Jul 05, 2022 23:44
[2022-07-05] MEDS ORDERED: lisINopril 20 MG (PRINIVIL) TABLET PO ONE (23:45)
[2022-07-05 23:56] VITALS: BP 168/97
== END 2022-07-05 23:56 | disposition home or self-care (01) ==
LOC: EDUNIT# 23:24 → ER 23:24
DX: I10 Essential (primary) hypertension (principal); Z95.5 Presence of coronary angioplasty implant and graft
CPT/HCPCS: 99283

== ENCOUNTER → 2022-12-01 | Outpatient (CLI) | payer MEDICARE, OTHER ==
[~2022-12-01] MED LIST changes: +LISI20TA26 PO
== END ==
LOC: CARD 11:30
PROVIDERS: ATTEND Nurse Practitioner Family
DX: I08.0 Rheumatic disorders of both mitral and aortic valves (principal)
CPT/HCPCS: 93306